=== PATIENT | male | born 1980 ===

== ENCOUNTER 2025-03-23 09:57 | Inpatient (IN) | payer OTHER, SELFPAY ==
[2025-03-23] VITALS (18 sets, daily range): BP systolic 80–143; BP diastolic 42–85; PULSE 67–154; RESP 11–22; TEMP 36.5–36.8; O2SAT 94–98; BMI 34.7; BMI 32.7
--- NOTE | 2025-03-23 | ECG_ITS ---
Test Reason : A-FIB Blood Pressure : */* mmHG Vent. Rate : 117 BPM Atrial Rate : 117 BPM P-R Int : 198 ms QRS Dur : 86 ms QT Int : 332 ms P-R-T Axes : 57 56 55 degrees QTcB Int : 463 ms Sinus tachycardia Early Repolarization Otherwise normal ECG When compared with ECG of 23-Mar-2025 10:20, Premature ventricular complexes are no longer Present Sinus rhythm is no longer with 2nd degree A-V block (Mobitz I) Referred By: Radha Parkinson Electronically Signed By: VELIA TOLLIVER MD
--- NOTE | ~2025-03-23 | XR_ITS ---
EXAMINATION: XR CHEST 1 VIEW HISTORY: palpitation COMPARISON: There are no prior studies available for comparison. FINDINGS: Two AP portable views of the chest performed at 1:11 PM are submitted. Artifacts overlie the left lung. No definite airspace opacity is seen. There is no pleural effusion, pneumothorax, or pulmonary vascular congestion. The heart is normal in size. The bones are intact. XR/XR chest 1V IMPRESSION: Limited examination due to artifacts. No gross abnormality is seen. Electronically signed by: Shiraz Simeon MD 03/23/2025 01:21 PM [facility]
--- NOTE | 2025-03-23 09:59 | ECG_ITS ---
Test Reason : CP Blood Pressure : */* mmHG Vent. Rate : 211 BPM Atrial Rate : * BPM P-R Int : * ms QRS Dur : 74 ms QT Int : 230 ms P-R-T Axes : * 102 174 degrees QTcB Int : 431 ms Supraventricular tachycardia Rightward axis Marked ST abnormality, possible inferior subendocardial injury Marked ST abnormality, possible anterolateral subendocardial injury Abnormal ECG No previous ECGs available Referred By: Generic ED Physician Electronically Signed By: VELIA TOLLIVER MD
[2025-03-23 10:13] LABS: MANUAL DIFF FLAG NO
[2025-03-23 10:20] LABS: Glucose, Whole Blood 214 mg/dL (60-115)
--- NOTE | 2025-03-23 10:20 | PC.NURSE ---
Patient arrived by EMS with c/o heart racing . EMS had attempted adenosine x3 and cardioversion x2 (50joules/100joules). VS upon time of arrival BP 80/[address] Luis at bedside with RN Niall and Emma. Adenosine 6mg given at 10:07 with brief period of HR <100; adenosine 12mg given at 10:08 and 10:18 with same brief period of HR <100. Dr. Luis ordered Cardizem 20mg IVP-given at 10:11. HR dropped into 110's. 3rd ECG done which showed ?Afib. aware. 1LNS infusing wide open. Second IV line inserted right arm. EMS line on left patent as well. BP prior to Cardizen 81/42. At 10:15, Cardizem drip hung at 6mg/hr with repeat BP 94/[address] Luis speaking with family at this time (Family is from [facility] and sleeve machine tender services being utilized). POC 214.
[2025-03-23 10:21] LABS: Hematocrit 48.0 % (42.0-52.0); Hemoglobin 16.4 g/dl (14.0-18.0); Imm Gran Abs Auto 0.01 X10*3/uL (0.00-0.03); Imm Gran Pct Auto 0.1 % (0.0-0.4); Lymphocytes Absolute Auto 2.5 X10*3/uL (1.2-4.9); Mean Corpuscular HGB Conc 34.2 g/dl (31.0-36.0); Mean Corpuscular Hemoglobin 30.0 pg (27.0-33.0); Mean Corpuscular Volume 87.9 fL (80.0-98.0); NRBC Abs Auto 0.000 X10*3/uL (0.0-0.012); NRBC Pct Auto 0.0 /100WBC (0.0-0.2); Platelet Count 236 X10*3/uL (160-400); Red Blood Count 5.46 X10*6/uL (4.60-5.80); White Blood Count 9.3 X10*3/uL (4.8-10.8)
[2025-03-23 10:27] LABS: Alanine Aminotransferase 59 U/L (0-40); Albumin Level 3.5 g/dL (3.5-5.0); Alkaline Phosphatase 64 U/L (39-117); Anion Gap 12 (12-20); Aspartate Amino Transferase 73 U/L (5-37); Blood Urea Nitrogen 13 mg/dL (9-16); Calcium 7.7 mg/dL (8.4-10.2); Carbon Dioxide 22 mmol/L (22-29); Chloride 111 mmol/L (96-108); Creatinine Clr Calc Pharmacy 121.7; Estimated Glomerular Filt Rate > 60; Magnesium 1.6 mg/dL (1.6-2.6); Potassium 3.9 mmol/L (3.3-5.1); Sodium 141 mmol/L (135-145); Total Protein 5.9 g/dL (6.5-8.0)
[2025-03-23 10:34] LABS: Troponin-I High Sensitivity 35.4 ng/L (<3.5-35.0)
--- NOTE | 2025-03-23 10:34 | ED_ITS ---
HPI - Arrhythmia/Palpitations General Chief Complaint: Arrhythmia/Palpitations Stated Complaint: chest pain, hr 186, Time Seen by Provider: 03/23/25 10:12 Source: patient, family, EMS and summer clerk (Moo) Mode of arrival: EMS Limitations: no limitations History of Present Illness ED Provider: DR. Castaneda HPI narrative: 44-year-old male with past medical history of SVT for the past 6 years, s/p ablation, patient was controlled on metoprolol for the last 5 years never had any episode then somehow the metoprolol was discontinued and patient had 1st episode after 5 years 2 days ago when he presented to [facility], came in by ambulance for evaluation of palpitation since this morning patient is feeling dizzy and palpitation called 911 patient had similar presentation 2 days ago went to [facility] and patient stated that he refused to be admitted to the hospital, patient's symptoms started around 09:00 this morning started with palpitation and feeling dizzy 911 was called on arrival patient with heart rate above 200 with hypotension patient did not respond to 6 mg / 12 mg/then 12 mg adenosine in the field patient require to be cardioverted by EMS was given 1 mg of Versed for sedation and patient was shocked at 120J followed by 200 usually patient temporary slow his heart rate down then rebound to the 200's. On arrival patient is sedated after was given Versed in route but able to answer simple question patient was in the 200 EKG showed narrow complex supraventricular tachycardia, given 6, 12, and 12 mg of adenosine was temporary slow down as normal sinus then patient rebound back to rapid SVT. Patient was given 6 mg of Cardizem with successful slow done of the heart rate to 110 with a sinus tachycardia, patient feels better now no palpitation, no chest pain no shortness of breath, blood pressure is 88/55 will continue with fluids consider pressor if needed. Related Data Allergies Allergy/AdvReac Type Severity Reaction Status Date / Time No Known Allergies Allergy Verified 03/23/25 10:19 Review of Systems 2 Review of Systems: All other systems are reviewed and are negative Constitutional: Reports as per HPI and Reports no additional constitutional complaints Eyes: Reports as per HPI and Reports no additional eye complaints Reports system reviewed and no additional complaints, except as documented Cardiovascular: Reports as per HPI and Reports no additional cardiovascular complaints Respiratory: Reports as per HPI and Reports no additional respiratory complaints Gastrointestinal: Reports as per HPI and Reports no additional gastrointestinal complaints Genitourinary: Reports no additional female genitourinary complaints Musculoskeletal: Reports no additional musculoskeletal complaints Skin/Breast: Reports system reviewed and no additional complaints, except as docu Psychiatric: Reports no additional psychiatric complaints Endocrine: Reports no additional endocrine complaints Hematologic/Lymphatic: Reports no additional hematologic/lymphatic complaints Allergic/Immunologic: Reports no additional allergic/immunologic complaints Reports system reviewed and no additional complaints, except as documented and Reports Abnormal speech present [facility] Social History Social History Smoked in Last 30 Days: No Use of substances other than those prescribed or required for medical reasons: No Advance Directives: No Advance Directives Information Provided: No Do you have a plan to hurt others: No Plan Physical Exam 2 Vital Signs: Vital Signs: Last Vital Signs Temp 97.7 F 03/23/25 10:27 Pulse 132 H 03/23/25 12:03 Resp 15 03/23/25 12:03 BP 107/57 L 03/23/25 12:03 Pulse Ox 96 03/23/25 12:03 O2 Del Method Nasal Cannula 03/23/25 12:03 O2 Flow Rate 1 03/23/25 12:03 Oxygen Flow Rate 4 03/23/25 10:17 BMI result Body Mass Index 34.7 Vital signs have been reviewed and appear to be correct. Blood pressure low, Heart rate elevated, Respiratory rate normal. Temperature normal. Oxygen saturation normal. Appearance: Alert. Oriented X3. No acute distress. Head: Normal external exam. Normocephalic. Atraumatic. No Fiore signs noted. No raccoon eyes noted Eyes: PERRLA. EOMI. Conjunctiva and sclera normal. Eyelids normal. ENT: TM's Normal. Pharynx normal. Uvula midline. Moist mucous membranes. No trismus noted. No drooling noted. No muffled voice noted. Neck: Normal inspection. Neck supple. FROM. No adenopathy. Thyroid Normal. No meningeal signs. No neck mass noted. CVS: Normal heart rate and rhythm. Heart sound normal. No murmurs noted. Pulses normal throughout. Respiratory: No respiratory distress. Painless inspiration. Breath sounds normal. No wheezes/rales/rhonchi noted. Chest nontender. No accessory muscle usage noted or decreased air movement noted. Abdomen: Soft and nontender. Bowel sounds normal in all 4 quadrants. No distention noted. No organomegaly noted. No visible injury noted. Back: No CVA tenderness. Full range of motion noted. Skin: Skin warm and dry. Normal skin color. Normal skin turgor. No rashes/lesions/lacerations noted. Extremities: No lower extremity edema. Extremities exhibit normal range of motion. Extremities nontender. Neuro: Oriented X 3. Cranial nerve exam: II-XII are grossly intact No motor deficit. No sensory deficit. Reflexes normal. Course Reevaluation(s) Reevaluation #1: Refractory narrow complex SVT to adenosine, and cardioversion by EMS on arrival patient require more adenosine and Cardizem drip has a better effect on heart rate now is 110s to 120s with more stable BP. Dr. Joy input is appreciated. Will admit for cardiac monitoring. Time: 12:45 Medications Administered Discontinued Medications Generic Name Dose Route Start Last Admin Trade Name Freq PRN Reason Stop Dose Admin Diazepam 2 mg 03/23/25 12:37 03/23/25 12:43 Diazepam 2 Mg Tablet PO 03/23/25 12:38 2 mg ONCE ONE Administration Digoxin 0.5 mg 03/23/25 11:15 03/23/25 11:38 Digoxin 0.5 Mg/2 Ml Ampul IVPUSH 03/23/25 11:16 0.5 mg ONCE ONE Administration Protocol Medical Decision Making Differential Diagnosis Differential Diagnoses: The differential diagnosis associated with the presentation includes ( SVT, rapid atrial fibrillation, wide complex tachycardia, electrolyte derangement, severe anemia, drug use.) Admission/Observation Consideration of admission/observation: Escalation of care including admission/observation considered Consult Healthcare Provider Management of the patient was discussed with: Hospitalist (Dr. Wise) and Marketing Traffic Coordinator ( Dr. Joy) Lab Data MDM Lab Attestation statement: I reviewed the patient's lab results. 03/23/25 10:05 03/23/25 10:05 Labs: Lab Results 03/23/25 03/23/25 03/23/25 Range/Units 10:05 10:08 10:15 WBC 9.3 (4.8-10.8) X10*3/uL RBC 5.46 (4.60-5.80) X10*6/uL Hgb 16.4 (14.0-18.0) g/dl Hct 48.0 (42.0-52.0) % MCV 87.9 (80.0-98.0) fL MCH 30.0 (27.0-33.0) pg MCHC 34.2 (31.0-36.0) g/dl RDW 12.2 (11.0-16.0) % Plt Count 236 (160-400) X10*3/uL MPV 11.6 (9.4-12.4) fL Immature Gran % (Auto) 0.1 (0.0-0.4) % Neut % (Auto) 59.7 (45-73) % Lymph % (Auto) 27.0 (20-40) % [place] % (Auto) 5.3 (2-11) % Eos % (Auto) 7.4 H (0-4) % Baso % (Auto) 0.5 (0-2) % Lymph # (Auto) 2.5 (1.2-4.9) X10*3/uL [place] # (Auto) 0.5 (0.1-1.2) X10*3/uL Eos # (Auto) 0.7 H (0.0-0.4) X10*3/uL Baso # (Auto) 0.1 (0.0-0.2) X10*3/uL Abs Immat Gran (auto) 0.01 (0.00-0.03) X10*3/uL Absolute Neuts (auto) 5.5 (2.0-8.3) x10*3/uL Absolute Nucleated RBC 0.000 (0.0-0.012) X10*3/uL Nucleated RBC % (auto) 0.0 (0.0-0.2) /100WBC Hold Purple Top SEE NOTE Hold Blue Top SEE NOTE Sodium 141 (135-145) mmol/L Potassium 3.9 (3.3-5.1) mmol/L Chloride 111 H (96-108) mmol/L Carbon Dioxide 22 (22-29) mmol/L Anion Gap 12 (12-20) BUN 13 (9-16) mg/dL Creatinine 0.96 (0.5-1.4) mg/dL Estim Creat Clear Calc 121.7 Estimated GFR > 60 POC Glucose 214 H (60-115) mg/dL Random Glucose 207 H (60-115) mg/dL Calcium 7.7 L (8.4-10.2) mg/dL Magnesium 1.6 (1.6-2.6) mg/dL Total Bilirubin 0.8 (0.0-1.0) mg/dL AST 73 H (5-37) U/L ALT 59 H (0-40) U/L Alkaline Phosphatase 64 (39-117) U/L Troponin I High Sens 35.4 H (<3.5-35.0) ng/L Total Protein 5.9 L (6.5-8.0) g/dL Albumin 3.5 (3.5-5.0) g/dL Independent Interpretation I performed an independent interpretation of an: EKG ( SVT at 210) Radiology Impression Discussion of test interpretation with radiology: I have reviewed the radiologist's reading. Critical Care Time Critical Care Time Critical Care Time: Yes Total Critical Care Time: 60 Attestation: The patient was critically ill with a high probability of imminent or life- threatening deterioration. I spent greater than 30 minutes of discontinuous time evaluating the patient, delivering critical care at the bedside, discussing evaluating data with consultants. Critical care time does not include time spent performing separately billable procedures or teaching. Time spent performing critical care was 60 minutes. Discharge Plan Discharge Clinical Impression: SVT (supraventricular tachycardia), Palpitations, Hypotension Patient Disposition: Admitted As Inpatient Print Language: Urdu
--- OUTSIDE RECORDS SUMMARY | 2025-03-23 10:45 | XMS_ITS | Clinical Summary ---
Author Organization [facility] Address [address] [place] [address] Care Team Providers Care [employer] Name Role Phone Sue Hooks [employer] Primary Care Provider Social History Tobacco Use Types Packs/Day Years Used Date Smoking Tobacco: Never Assessed Sex and Gender Information Value Date Recorded Sex Assigned at Not on file Legal Sex Male 7:42 AM EST Gender Identity Not on file Sexual Orientation Not on file Last Filed Vital Signs Vital Sign Reading Time Taken Comments Blood Pressure 130/75 06/26/2023 2:14 PM EDT Pulse 121 06/26/2023 2:14 PM EDT Temperature - - Respiratory Rate - - Oxygen Saturation - - Inhaled Oxygen Concentration - - Weight 106 kg (233 lb) 06/26/2023 2:14 PM EDT Height 170.2 cm (5' 7 ) 06/26/2023 2:14 PM EDT Body Mass Index 36.49 06/26/2023 2:14 PM EDT Plan of Treatment Health Maintenance Due Date Last Done Comments DTaP,Tdap,and Td Vaccines (1 - Tdap) 1999 Hepatitis B Vaccines (1 of 3 - 19+ 3-dose series) 1999 HPV Vaccines (1 - 3-dose SCD M series) 2007 Cholesterol Screening (Lipid Panel) 03/03/2022 HIV Screening 03/03/2022 Hepatitis C Screening 03/03/2022 Social Influencers of Health Screening 03/03/2022 Depression Screening 2024 COVID-19 Vaccine ( - 2024-2 6 season) 2024 Influenza Vaccine (#1) 2024 RSV Immunization Adult Patie nts (1 - 1-dose 75+ series) 2055 HIB Vaccines Aged Out No longer eligi ble based on patient's age to complete this topic Hepatitis A Vaccines Aged Out No long er eligible based on patient's age to complete this topic IPV Vaccines Aged Out No longer eligi ble based on patient's age to complete this topic MMR Vaccines Aged Out No longer eligi ble based on patient's age to complete this topic Meningococcal ACWY Vaccine Aged Out N o longer eligible based on patient's age to complete this topic Meningococcal B Vaccine Aged Out No l onger eligible based on patient's age to complete this topic Pneumococcal Vaccine: Pediat rics (0 to 5 Years) and At-Risk Patients (6 to 49 Years) Aged Out No longer eligible b ased on patient's age to complete this topic RSV Immunization Patients Un sophia 20 months Aged Out No longer eligible b ased on patient's age to complete this topic Varicella Vaccines Aged Out No longer eligible based on patient's age to complete this topic Care Teams [employer] Relationship Specialty Start Date End Date Sue Hooks FNP [address] [place] [phone] PCP - General 05/27/23
--- NOTE | 2025-03-23 11:00 | PC.NURSE ---
Completed 1L IVF Patient BP 100/54 HR 122-145 Increased Cardizem drip from 10 mg -> 15 mg/hr Patient on 4 L NC, titrated to RA 90% patient expressed feeling SOB Titrated O2 to 1L NC patient O2 100 RR 13 remains at bedside
--- NOTE | 2025-03-23 12:06 | P.CONCA_ITS ---
History of Present Illness History of Present Illness Date of Service: 03/23/25 Requesting physician: Frida Castaneda Consult reason: other (Supraventricular tachycardia with hypotension) Chief complaint: chest pain, hr 186, Narrative: I was consulted to see [place] in cardiology consultation today for recalcitrant SVT. Patient is a 44-year-old man from [facility] who now lives in [facility] for the last 20 years. And has had diabetes for many years and about in 2019 was diagnosed with past artery and and consistent with SVT. He then describes the procedure which appears to be catheter ablation but as per him was unsuccessful and the confined the pathway and were not able to ablate him. Subsequently was treated with medications and he thinks this was metoprolol. He said he did well for many years and about a year ago his metoprolol was stopped for unclear reasons. Does not understands to why. There has been change in his primary care physician physicians overall. He then started about 2 weeks ago having symptoms of fast heart rate associated with dizziness and then shortness of breath and chest heaviness. He said these symptoms started spontaneously and even happen with minimal exertional like he is trying to do something at work. 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 He subsequently went to [facility] about 2 days ago. Was advise admission but then signed out. He then today had severe symptoms and called EMS and on the field received round of adenosine x3 without conversion became hypotensive and required cardioversion in the field. Patient was sedated and then he was brought to the emergency room. In the emergency room continued to have these episodes. He was then given Cardizem and has been put on Cardizem drip. With that there has been some controlled but he continues to have recurrent episodes of short bursts of SVT. EKGs consistent with AVNRT. His blood pressure is on the softer side. However at rest he is feeling okay. Denies any significant shortness of breath or chest pain. His initial troponin was slightly elevated. Cardiology consult was sought because of his recurrent SVT. He has never had any other cardiac issues as per him. [facility] Social History Social History Smoked in Last 30 Days: No Use of substances other than those prescribed or required for medical reasons: No Advance Directives: No Advance Directives Information Provided: No Do you have a plan to hurt others: No Plan Meds Allergies Allergy/AdvReac Type Severity Reaction Status Date / Time No Known Allergies Allergy Verified 03/23/25 10:19 Physical Exam 2 Vital Signs: Vital Signs: Last Vital Signs Temp 97.7 F 03/23/25 10:27 Pulse 132 H 03/23/25 12:03 Resp 15 03/23/25 12:03 BP 107/57 L 03/23/25 12:03 Pulse Ox 96 03/23/25 12:03 O2 Del Method Nasal Cannula 03/23/25 12:03 O2 Flow Rate 1 03/23/25 12:03 Oxygen Flow Rate 4 03/23/25 10:17 BMI result Body Mass Index 34.7 Const: General: cooperative, comfortable, no acute distress, alert, awake and anxious Nutritional Appearance: obese Orientation/consciousness: patient oriented x3 Limitations: no limitations HEENT: Head: Yes normocephalic and Yes atraumatic Neck: Neck: Yes trachea midline, Yes supple and Yes no JVD Resp: Effort & Inspection: normal respiratory effort Auscultation: clear to auscultation bilaterally Cardio: Jugular venous distension: no JVD Rate: tachycardic Rhythm: a bnormal rhythm other (Intermittent tachycardia) Heart sounds: S1 normal heart sound present, S2 normal heart sound present, no click, no gallops and no murmurs GI: Auscultation: normal bowel sounds Skin: General skin exam: no rashes or lesions noted Neuro: General: patient oriented x3 and no focal motor deficits Extrem: General: Yes no clubbing, cyanosis or edema Objective Labs and Meds 03/23/25 10:05 03/23/25 10:05 Lab results: Laboratory Results - last 24 hr 03/23/25 03/23/25 03/23/25 10:05 10:08 10:15 WBC 9.3 RBC 5.46 Hgb 16.4 Hct 48.0 MCV 87.9 MCH 30.0 MCHC 34.2 RDW 12.2 Plt Count 236 MPV 11.6 Immature Gran % (Auto) 0.1 Neut % (Auto) 59.7 Lymph % (Auto) 27.0 [place] % (Auto) 5.3 Eos % (Auto) 7.4 H Baso % (Auto) 0.5 Lymph # (Auto) 2.5 [place] # (Auto) 0.5 Eos # (Auto) 0.7 H Baso # (Auto) 0.1 Abs Immat Gran (auto) 0.01 Absolute Neuts (auto) 5.5 Absolute Nucleated RBC 0.000 Nucleated RBC % (auto) 0.0 Hold Purple Top SEE NOTE Hold Blue Top SEE NOTE Sodium 141 Potassium 3.9 Chloride 111 H Carbon Dioxide 22 Anion Gap 12 BUN 13 Creatinine 0.96 Estim Creat Clear Calc 121.7 Estimated GFR > 60 POC Glucose 214 H Random Glucose 207 H Calcium 7.7 L Magnesium 1.6 Total Bilirubin 0.8 AST 73 H ALT 59 H Alkaline Phosphatase 64 Troponin I High Sens 35.4 H Total Protein 5.9 L Albumin 3.5 EKGs shows narrow complex tachycardia at 200-210 beats per minute consistent with SVT of AVNRT type. Subsequent EKGs shows normal sinus rhythm without any evidence of pre-excitation Assessment and Plan (1) SVT (supraventricular tachycardia): Status: Acute Recalcitrant SVT which has been difficult control with the associated hypotension. Patient required synchronized cardioversion [employer] due to significant symptoms and low blood pressure. Since then has had partial response to full-dose IV Cardizem drip at this time. His blood pressure remained soft. Will give him digoxin 0.5 mg to also block is fast pathway to try to break his SVT. If this is difficult control, will then consider IV amiodarone to slow AV conduction as well as hopefully prevent any other cardiac arrhythmias. Would give him IV fluid as that has no evidence of congestive heart failure. If need be and blood pressure remains low may require IV vasopressor therapy. Discussed the case with electrophysiology database administration associate as well. Discussed the case with ED physician. Greater than 40 minutes was spent in managing and coordinating his care. Thank you for allowing me to partake in his care Procedures Date of Service Date of Service: 03/23/25
[2025-03-23 13:14] LABS: Cannabinoid Screen Urine Not Detected (Not Detect)
[2025-03-23 13:20] LABS: Appearance Urine Clear; Glucose Urine UA 500 mg/dL (Negative); PH 6.5 (5.0-9.0); Specific Gravity - Urine 1.010 (1.005-1.025)
--- NOTE | 2025-03-23 13:40 | PM.IMHP ---
History of Present Illness Date of Service: 03/23/25 Chief Complaint: palpitations 44-year-old gentleman with past medical history of diabetes mellitus type 2 on insulin, history of SVT status post ablation 6 years ago, was subsequently on metoprolol for 5 years and never had any episode. Recently his metoprolol was discontinued by his new PCP. Two days ago he developed palpitations and went to [facility] was advice admission but patient refused admission. This morning patient developed palpitations associated with dizziness therefore called 911. EMS found patient heart rate in 200s with hypotension therefore treated with adenosine 6 mg followed by 12 mg and another 12 mg dose with no significant response therefore required cardioversion received 120 joule shock followed by 200 by EMS. Patient heart rate temporarily slowed but then rebound to 200s. In emergency room EKG showed narrow complex supraventricular tachycardia patient was treated with Cardizem heart rate slowed down but was noted to have low blood pressure 88/55. Patient currently is on Cardizem drip heart rate is controlled but noted to have recurrent episode of short burst of SVT. Patient seen by [employer] retailer sales consultant Dr. Reina, EKGs consistent with AVNRT, he recommended 1 dose of digoxin 0.5 mg and IV fluids patient is now being admitted to [facility] for continued monitoring and treatment of SVT at present patient denies chest pain but continued to be lightheaded and dizzy. Patient admits to drinking 1 quater of whiskey over weekend and smokes half pack per day. Review of Systems Review of Systems: General no headache, dizziness no fever chills. CVS no chest pain, no palpitation. Respiratory no cough, no sob Gastrointestinal no nausea, no vomiting, no abdominal pain All other system reviewed and are negative PMFSH Pertinent family history: Parents are alive patient not aware of their health history. Social History Household Members: Spouse Housing: Apartment Do you presently have visiting nurse or other home services: No Patient Tobacco Use Status: Current everyday Tobacco user Tobacco use type: Cigarette Cigarette Packs Per Day: 0.5 Cigarettes Per Day: 10.0 Years Smoked: 8 Smoked in Last 30 Days: Yes Patient Interested in Nicotine Replacement: Yes Use of substances other than those prescribed or required for medical reasons: No Currently Displaying Signs/Symptoms of Drug Intoxication Withdrawal: No Have you been hit, kicked, punched, or otherwise hurt by someone within the past year? If so, by whom?: No Do you feel safe in your current relationship?: Yes Is there a partner from a previous relationship who is making you feel unsafe now?: No Are you made to feel afraid or neglected: No Advance Directives: No Advance Directives Information Provided: No Do you have a plan to hurt others: No Plan Recently lost weight without trying: No Eating poorly because of decreased appetite: No Nutrition Risks: No Nutritional Risk Poor oral hygiene: No service: No Meds Allergies Allergy/AdvReac Type Severity Reaction Status Date / Time No Known Allergies Allergy Verified 03/23/25 10:19 Active Medications: Current Medications Acetaminophen (Acetaminophen 325 Mg Tablet) 650 mg PO Q6H PRN PRN Reason: Pain, Mild 1-3,fever,headache Al Hydroxide/Mg Hydroxide (Magnesium Hydrox/Alum Hydrox 30 Ml Oral.Susp) 30 ml PO Q4H PRN PRN Reason: Heartburn Calcium Carbonate (Calcium Carbonate 750 Mg Tab.Chew) 750 mg PO Q4H PRN PRN Reason: Heartburn Glucose (Glucose Gel 15 Gm Gel..Gram.) 15 gm PO Q15M PRN; Protocol PRN Reason: per Hypoglycemia Standing Ord. Lactated Ringer's (Lr) 1,000 mls @ 100 mls/hr IVCONT .Q10H [facility] Stop: 03/23/25 23:44 Diltiazem HCl 125 mg/ Sodium (Chloride) 125 mls @ 0 mls/hr IVCONT .Q0M [facility]; Protocol Magnesium Hydroxide (Milk Of Magnesia 30 Ml Oral.Susp) 30 ml PO DAILY PRN PRN Reason: Constipation Melatonin (Melatonin 3 Mg Tablet) 6 mg PO BEDTIME PRN PRN Reason: Insomnia Nicotine Polacrilex (Nicotine Polacrilex 2 Mg Gum) 2 mg BUCCAL Q2H PRN PRN Reason: Nicotine Cravings Ondansetron HCl (Ondansetron Hcl 4 Mg/2 Ml Vial) 4 mg IVPUSH Q8H PRN PRN Reason: Nausea and Vomiting Polyethylene Glycol (Polyethylene Glycol 3350 17 Gm Powd.Pack) 17 gm PO DAILY PRN PRN Reason: Constipation Sodium Chloride (0.9 % Sodium Chloride Flush 3 Ml Syringe) 3 ml IVFLUSH [facility] Home Medications ?Medication ?Instructions ?Recorded ?Confirmed ?Last Taken ?Type acetaminophen 650 mg 1,300 mg PO Q8H PRN Headache/Pain 03/23/25 03/23/25 03/23/25 History tablet,extended release atorvastatin 20 mg tablet 20 mg PO DAILY 03/23/25 03/23/25 3 Days Ago History ~03/20/25 insulin glargine 100 unit/mL (3 45 unit subcut DAILY 03/23/25 03/23/25 03/22/25 History mL) subcutaneous pen (Lantus Solostar U-100 Insulin) metformin 1,000 mg tablet 1,000 mg PO BID 03/23/25 03/23/25 03/22/25 History Physical Exam Vital Signs and Narrative: Vital Signs: Last Vital Signs Temp 97.7 F 03/23/25 10:27 Pulse 126 H 03/23/25 12:56 Resp 15 03/23/25 12:56 BP 129/85 03/23/25 12:56 Pulse Ox 96 03/23/25 12:56 O2 Del Method Nasal Cannula 03/23/25 12:56 O2 Flow Rate 1 03/23/25 12:56 Oxygen Flow Rate 4 03/23/25 10:17 BMI result Body Mass Index 34.7 Const: Other: General resting comfortably in no acute distress. Neck supple no JVD. CVS regular rate rhythm, tachy Respiratory lungs clear to auscultation, no respiratory distress, no wheeze, no rhonchi. Gastrointestinal abdomen soft, non tender, bowel sounds audible, no guarding , no rigidity. Extremities no edema. Neuro non focal Skin no rash Psych appropriate affect Results Labs 03/25/25 06:17 03/25/25 06:17 Labs: Laboratory Results - last 24 hr 03/23/25 03/23/25 03/23/25 10:05 10:08 10:15 MCV 87.9 MCH 30.0 MCHC 34.2 RDW 12.2 Plt Count 236 MPV 11.6 Immature Gran % (Auto) 0.1 Neut % (Auto) 59.7 Lymph % (Auto) 27.0 [place] % (Auto) 5.3 Eos % (Auto) 7.4 H Baso % (Auto) 0.5 Lymph # (Auto) 2.5 [place] # (Auto) 0.5 Eos # (Auto) 0.7 H Baso # (Auto) 0.1 Abs Immat Gran (auto) 0.01 Absolute Neuts (auto) 5.5 Absolute Nucleated RBC 0.000 Nucleated RBC % (auto) 0.0 Hold Purple Top SEE NOTE Hold Blue Top SEE NOTE Anion Gap 12 Estim Creat Clear Calc 121.7 Estimated GFR > 60 POC Glucose 214 H Random Glucose 207 H Calcium 7.7 L Magnesium 1.6 Total Bilirubin 0.8 AST 73 H ALT 59 H Alkaline Phosphatase 64 Troponin I High Sens 35.4 H Total Protein 5.9 L Albumin 3.5 Urine Color Urine Appearance Urine pH Ur Specific [place] Urine Protein Urine Glucose (UA) Urine Ketones Urine Blood Urine Nitrite Ur Leukocyte Esterase Urine Opiates Screen Ur Buprenorphine Scrn Ur Oxycodone Screen Urine Methadone Screen Urine Fentanyl Screen Ur Barbiturates Screen Ur Phencyclidine Scrn Ur Amphetamines Screen U Benzodiazepines Scrn Urine Cocaine Screen U Marijuana (THC) Screen 03/23/25 12:55 MCV MCH MCHC RDW Plt Count MPV Immature Gran % (Auto) Neut % (Auto) Lymph % (Auto) [place] % (Auto) Eos % (Auto) Baso % (Auto) Lymph # (Auto) [place] # (Auto) Eos # (Auto) Baso # (Auto) Abs Immat Gran (auto) Absolute Neuts (auto) Absolute Nucleated RBC Nucleated RBC % (auto) Hold Purple Top Hold Blue Top Anion Gap Estim Creat Clear Calc Estimated GFR POC Glucose Random Glucose Calcium Magnesium Total Bilirubin AST ALT Alkaline Phosphatase Troponin I High Sens Total Protein Albumin Urine Color Yellow Urine Appearance Clear Urine pH 6.5 Ur Specific [place] 1.010 Urine Protein Trace Urine Glucose (UA) 500 H Urine Ketones 15 Urine Blood Negative Urine Nitrite Negative Ur Leukocyte Esterase Negative Urine Opiates Screen Not Detected Ur Buprenorphine Scrn Not Detected Ur Oxycodone Screen Not Detected Urine Methadone Screen Not Detected Urine Fentanyl Screen Not Detected Ur Barbiturates Screen Not Detected Ur Phencyclidine Scrn Not Detected Ur Amphetamines Screen Not Detected U Benzodiazepines Scrn POSITIVE H Urine Cocaine Screen Not Detected U Marijuana (THC) Screen Not Detected Imaging Radiologist's Impressions: Impressions Chest X-Ray 03/23/25 13:11 IMPRESSION: Limited examination due to artifacts. No gross abnormality is seen. Electronically signed by: Shiraz Simeon MD 03/23/2025 01:21 PM [facility] Assessment and Plan (1) Palpitations: Status: Acute (2) Hypotension: Status: Acute (3) SVT (supraventricular tachycardia): Status: Acute Plan 44-year-old gentleman with past medical history of SVT status post ablation 6 years ago was doing fine up until recently when his metoprolol was discontinued patient developed episodes of intermittent palpitations and lightheadedness. Recalcitrant SVT associated with hypotension Patient heart rate continued to fluctuate between 100-135 with persistent lightheadedness Patient treated with 3 dosages of IV adenosine followed by cardioversion with temporary improvement in heart rate, treated in emergency room with IV Cardizem. Continue IV Cardizem drip, status post digoxin 0.5 mg IV, continue tele monitor Repeat EKG, trend troponin Echocardiogram Cardiology consultation Diabetes mellitus type [address] on diabetic diet/insulin sliding scale hold metformin, point of care blood sugar monitoring. Tobacco use disorder counseling done place on nicotine gum Alcohol use disorder drink heavily over weekend strongly recommend to abstain from alcohol, no history of prior withdrawal, follow CIWA. DVT prophylaxis subQ Lovenox Full code In my clinical judgment patient require 2 night inpatient stay for monitoring of recalcitrant SVT on IV Cardizem drip specialist consultation and further medication adjustment treatment can not be provided in less acute setting. Quality Stroke Does the patient have a stroke diagnosis?: No VTE Prior VTE?: No VTE Risk Level:: Medical - moderate - high VTE Device Contraindication: Treatment Not Indicated VTE Drug Contraindication: N/A - Med Ordered
--- NOTE | 2025-03-23 13:45 | CA_ITS ---
Transthoracic Echocardiogram Patient (Last, First, Middle): Austin Tovar, Gender: M Date of : 1980 Age: 44 Procedure Date: 03/23/2025 Procedure Type: Transthoracic Echocardiogram Location: ER Height: 177.8 cm Weight: 58.51 kg BSA: 1.73 m2 Heart Rate: 78 bpm BP: 125 / 76 mmHg Science Teacher: JOSIAS Referring MD: Radha Parkinson MD Recyclable Materials Sorter: Cristopher Joy MD Symptoms: svt Study Quality: Fair but adequate ECG Rhythm: Sinus with frequent PACs Conclusions: - 1. Low normal LV ejection fraction 50-55% with mildly increased LV wall thickness 2. Normal cardiac valvular Dopplers 3. Upper limits of normal ascending aortic size 4. No gross pericardial effusion Findings Left Ventricle Normal left ventricular cavity size. There is mildly increased left ventricular wall thickness. The left ventricular systolic function is low normal. The visually estimated ejection fraction is between 50-55%. Diastolic function is indeterminate on the basis of available data. Right Ventricle Normal right ventricular cavity size. There is normal right ventricular systolic function. Atria The left atrium is likely dilated. Interatrial shunt cannot be excluded. The right atrium is normal in size. Aortic Valve Normal aortic valve structure and function. There is no aortic valve stenosis. There is no aortic valve regurgitation. Mitral Valve Normal mitral valve structure and function. There is trace mitral valve regurgitation. There is no mitral valve stenosis. Pulmonic Valve The pulmonic valve is likely normal. Tricuspid Valve Normal tricuspid valve structure. Tricuspid regurgitation envelope is inadequate for calculation of right ventricular systolic pressure. Normal right atrial pressure. Great Vessels All visible segments of the aorta are normal in size. The pulmonary artery was not well visualized. There is no dilatation of the ascending aorta measuring 3.50 cm. Venous The inferior vena cava is normal in size and collapses greater than 50% with inspiration. Pericardium/Pleural There is no evidence of pericardial effusion. Prior Study Comparison No prior study available for comparison. Measurements 2D Linear Measurements IVSd: 1.18 0.6-0.9/0.6-1.0 cm LVIDd: 4.80 3.9-5.3/4.2-5.9 cm LVIDd Index: 2.77 2.4-3.2/2.2-3.1 cm/m2 LVIDs: 3.19 2.0-3.6 cm LVPWd: 1.21 0.7-1.1 cm LA Diam: 4.10 2.7-3.8/3.0-4.0 cm LAIDs Index: 2.37 1.5-2.3 cm/m2 LV Mass: 330.79 67-162/88-224 g LV Mass Index: 191.21 43-95/49-115 g/m2 LVOT Diam: 2.20 3.0+(-)1.3 cm Mitral Valve MV Pk E: 0.71 MV PK A: 0.84 MV Decel Time: 151.00 E/A: 0.80 E'Medial: 8.81 E/E' Med: 8.00 PHT: 44.00 MVA PHT: 5.00 Decel [place]: 4.69 Aortic Valve AoV Pk Jose Alejandro: 0.90 AoV Pk Grad: 3.00 [place]: 3.44 LVOT LVOT Pk Jose Alejandro: 0.82 LVOT Mn Jose Alejandro: 0.59 LVOT VTI: 0.15 LVOT Pk Grad: 3.00 LVOT Mn Grad: 2.00 LVOT Diam: 2.20 LVOT Area: 3.80 Diastolic Function MV Pk E: 0.71 MV Pk A: 0.84 E/A: 0.80 E'Medial: 8.81 E/E' Med: 8.00 Right Ventricle TAPSE (mm): 18.50 TVS' Jose Alejandro: 10.40 Tricuspid Valve RA Press: 8.00 Great Vessels Aorta Sinus of Valsalva: 3.30 2.0-3.5 cm Ao Asc: 3.50 2.1-3.4 cm Ao Arch: 3.00 Pulmonary Valve PV Pk Jose Alejandro: 0.75 Peak PV Grad: 2.00 Updated in Other Vendor System with Status of Final Cristopher Joy MD electronically signed on 03/23/2025 3:28:24 PM with status of Final
[2025-03-23 14:34] LABS: Magnesium 1.7 mg/dL (1.6-2.6)
[2025-03-23 14:41] LABS: Troponin-I High Sensitivity 65.2 ng/L (<3.5-35.0)
--- NOTE | 2025-03-23 15:14 | PHA.MEDREC ---
Addendum entered by Du Kuhn PharmD 03/23/25 15:17: reviewed Original Note: Pharmacy Consult ? Medication Reconciliation Pharmacy has completed the medication reconciliation. Spoke with pt and he confirmed his medications. Pt states he ran out of his Atorvastatin 20mg tabs ~3-4 days ago he states.
[2025-03-23] MEDS: Lactated Ringers 1,000 ML 100 ML IVCONT (16:06)
--- NOTE | 2025-03-23 17:03 | PC.NURSE ---
Patient HR 71 Titrated cardizem drip 10mg/hr BP 136/70
[2025-03-23 17:48] LABS: Glucose, Whole Blood 254 mg/dL (60-115)
[2025-03-23 21:48] LABS: Glucose, Whole Blood 189 mg/dL (60-115)
[2025-03-24] VITALS (15 sets, daily range): BP systolic 112–156; BP diastolic 50–98; PULSE 79–130; RESP 14–18; TEMP 36.1–36.8; O2SAT 92–94
--- NOTE | 2025-03-24 | ECG_ITS ---
Test Reason : adnormal ryhthm Blood Pressure : */* mmHG Vent. Rate : 112 BPM Atrial Rate : 130 BPM P-R Int : * ms QRS Dur : 88 ms QT Int : 326 ms P-R-T Axes : 66 70 52 degrees QTcB Int : 444 ms Normal sinus rhythm with short bursts of atrial tachycardia Abnormal ECG Normal sinus rhythm is noted intermittently Referred By: Lisa Cardoso Electronically Signed By: VELIA TOLLIVER MD
[2025-03-24 06:56] LABS: Cholesterol 121 mg/dL (<200); HDL Cholesterol 31 mg/dL (>40); Triglycerides 124 mg/dL (<150)
--- NOTE | 2025-03-24 08:06 | MHC.CM.PN ---
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 Home/self care is Patient's goal and CM has initiated and will follow for dc planning.PCP is from the [facility] in [place] and Patient's Friend will transport at dc.
--- NOTE | 2025-03-24 08:07 | PM.IMPN ---
Progress Note: A&P (1) SVT (supraventricular tachycardia): Status: Acute Assessment and Plan: 44-year-old gentleman with past medical history of SVT status post ablation 6 years ago was doing fine up until recently when his metoprolol was discontinued patient developed episodes of intermittent palpitations and lightheadedness. Recalcitrant SVT associated with hypotension Likely in the setting of not having a cardiology follow-up and medication compliance from poor access Reinforced the need for scheduled follow-up and medication adjustment-patient would like to be referred to someone at our facility in outpatient settings. Patient treated with 3 dosages of IV adenosine followed by cardioversion with temporary improvement in heart rate, treated in emergency room with IV Cardizem.IV,status post digoxin 0.5 mg IV, Given suboptimal control, we will start him on metoprolol tartrate 25 p.o. q.6 scheduled, digoxin 0.25 daily for rate and rhythm control and wean him off of Cardizem drip slowly Continue tele monitor Troponin peaked Echocardiogram no ventricular or valvular deficits noted Cardiology following Check TSH, LFTs Diabetes mellitus type [address] on diabetic diet/insulin sliding scale hold metformin, point of care blood sugar monitoring. Checking A1c Tobacco use disorder counseling done place on nicotine gum Alcohol use disorder drink heavily over weekend strongly recommend to abstain from alcohol, no history of prior withdrawal, follow CIWA. DVT prophylaxis subQ Lovenox Full code In my clinical judgment patient require 1 more night inpatient stay for monitoring of recalcitrant SVT on IV Cardizem drip specialist consultation and further medication adjustment treatment can not be provided in less acute setting. Subjective Subjective Date of Service: 03/24/25 Interval History: Meds being adjusted adding metoprolol and digoxin p.o. We will try to wean him of Cardizem drip Review of Systems Review of Systems: Yes all other systems are reviewed and are negative Physical Exam Exam: Exam: General resting comfortably in no acute distress. CVS regular rate rhythm, tachy Respiratory lungs clear to auscultation, no respiratory distress, no wheeze, no rhonchi. Gastrointestinal abdomen soft, non tender, bowel sounds audible, no guarding , no rigidity. Psych appropriate affect Vital Signs: Vital Signs: Last Vital Signs Temp 97.0 F 03/24/25 03:03 Pulse 87 03/24/25 07:01 Resp 14 03/24/25 03:03 BP 130/61 03/24/25 07:01 Pulse Ox 94 03/24/25 03:03 O2 Del Method Room Air 03/24/25 03:03 O2 Flow Rate 1 03/23/25 12:56 Oxygen Flow Rate 4 03/23/25 10:17 BMI result Body Mass Index 32.7 Objective Data Current Medications Acetaminophen (Acetaminophen 325 Mg Tablet) 650 mg PO Q6H PRN PRN Reason: Pain, Mild 1-3,fever,headache Last Admin: 03/23/25 17:44 Dose: 650 mg Al Hydroxide/Mg Hydroxide (Magnesium Hydrox/Alum Hydrox 30 Ml Oral.Susp) 30 ml PO Q4H PRN PRN Reason: Heartburn Atorvastatin Calcium (Atorvastatin Calcium 20 Mg Tablet) 20 mg PO DAILY [facility] Calcium Carbonate (Calcium Carbonate 750 Mg Tab.Chew) 750 mg PO Q4H PRN PRN Reason: Heartburn Dextrose (Dextrose 50 % 25 Gm/50 Ml Syringe) 25 gm IVPUSH Q15M PRN; Protocol PRN Reason: per Hypoglycemia Standing Ord. Glucose (Glucose Gel 15 Gm Gel..Gram.) 15 gm PO Q15M PRN; Protocol PRN Reason: per Hypoglycemia Standing Ord. Diltiazem HCl 125 mg/ Sodium (Chloride) 125 mls @ 0 mls/hr IVCONT .Q0M [facility]; Protocol Last Titration: 03/24/25 07:01 Dose: 10 mg/hr, 10 mls/hr Insulin Glargine (Insulin Glargine,Hum.Rec.Anlog 100 Unit/Ml 10 Ml Vial) 35 unit SUBCUT DAILY [facility] Insulin Human Lispro (Insulin Lispro 100 Unit/Ml 3 Ml Vial) 0 unit SUBCUT QIDACHS [facility]; Protocol Last Admin: 03/23/25 21:52 Dose: 2 unit Magnesium Hydroxide (Milk Of Magnesia 30 Ml Oral.Susp) 30 ml PO DAILY PRN PRN Reason: Constipation Melatonin (Melatonin 3 Mg Tablet) 6 mg PO BEDTIME PRN PRN Reason: Insomnia Nicotine Polacrilex (Nicotine Polacrilex 2 Mg Gum) 2 mg BUCCAL Q2H PRN PRN Reason: Nicotine Cravings Ondansetron HCl (Ondansetron Hcl 4 Mg/2 Ml Vial) 4 mg IVPUSH Q8H PRN PRN Reason: Nausea and Vomiting Polyethylene Glycol (Polyethylene Glycol 3350 17 Gm Powd.Pack) 17 gm PO DAILY PRN PRN Reason: Constipation Sodium Chloride (0.9 % Sodium Chloride Flush 3 Ml Syringe) 3 ml IVFLUSH QSHIFT [facility] Last Admin: 03/24/25 02:39 Dose: Not Given Labs 03/24/25 08:36 03/24/25 08:36 Labs: Laboratory Results - last 24 hr 03/23/25 03/23/25 03/23/25 10:05 10:08 10:15 MCV 87.9 MCH 30.0 MCHC 34.2 RDW 12.2 Plt Count 236 MPV 11.6 Immature Gran % (Auto) 0.1 Neut % (Auto) 59.7 Lymph % (Auto) 27.0 [place] % (Auto) 5.3 Eos % (Auto) 7.4 H Baso % (Auto) 0.5 Lymph # (Auto) 2.5 [place] # (Auto) 0.5 Eos # (Auto) 0.7 H Baso # (Auto) 0.1 Abs Immat Gran (auto) 0.01 Absolute Neuts (auto) 5.5 Absolute Nucleated RBC 0.000 Nucleated RBC % (auto) 0.0 Hold Purple Top SEE NOTE Hold Blue Top SEE NOTE Anion Gap 12 Estim Creat Clear Calc 121.7 Estimated GFR > 60 POC Glucose 214 H Random Glucose 207 H Calcium 7.7 L Magnesium 1.6 Total Bilirubin 0.8 AST 73 H ALT 59 H Alkaline Phosphatase 64 Troponin I High Sens 35.4 H Total Protein 5.9 L Albumin 3.5 Triglycerides Cholesterol LDL Cholesterol, Calc HDL Cholesterol Urine Color Urine Appearance Urine pH Ur Specific [place] Urine Protein Urine Glucose (UA) Urine Ketones Urine Blood Urine Nitrite Ur Leukocyte Esterase Urine Opiates Screen Ur Buprenorphine Scrn Ur Oxycodone Screen Urine Methadone Screen Urine Fentanyl Screen Ur Barbiturates Screen Ur Phencyclidine Scrn Ur Amphetamines Screen U Benzodiazepines Scrn Urine Cocaine Screen U Marijuana (THC) Screen 03/23/25 03/23/25 03/23/25 12:55 14:12 17:43 MCV MCH MCHC RDW Plt Count MPV Immature Gran % (Auto) Neut % (Auto) Lymph % (Auto) [place] % (Auto) Eos % (Auto) Baso % (Auto) Lymph # (Auto) [place] # (Auto) Eos # (Auto) Baso # (Auto) Abs Immat Gran (auto) Absolute Neuts (auto) Absolute Nucleated RBC Nucleated RBC % (auto) Hold Purple Top Hold Blue Top Anion Gap Estim Creat Clear Calc Estimated GFR POC Glucose 254 H Random Glucose Calcium Magnesium 1.7 Total Bilirubin AST ALT Alkaline Phosphatase Troponin I High Sens 65.2 H D Total Protein Albumin Triglycerides Cholesterol LDL Cholesterol, Calc HDL Cholesterol Urine Color Yellow Urine Appearance Clear Urine pH 6.5 Ur Specific [place] 1.010 Urine Protein Trace Urine Glucose (UA) 500 H Urine Ketones 15 Urine Blood Negative Urine Nitrite Negative Ur Leukocyte Esterase Negative Urine Opiates Screen Not Detected Ur Buprenorphine Scrn Not Detected Ur Oxycodone Screen Not Detected Urine Methadone Screen Not Detected Urine Fentanyl Screen Not Detected Ur Barbiturates Screen Not Detected Ur Phencyclidine Scrn Not Detected Ur Amphetamines Screen Not Detected U Benzodiazepines Scrn POSITIVE H Urine Cocaine Screen Not Detected U Marijuana (THC) Screen Not Detected 03/23/25 03/24/25 21:44 06:12 MCV MCH MCHC RDW Plt Count MPV Immature Gran % (Auto) Neut % (Auto) Lymph % (Auto) [place] % (Auto) Eos % (Auto) Baso % (Auto) Lymph # (Auto) [place] # (Auto) Eos # (Auto) Baso # (Auto) Abs Immat Gran (auto) Absolute Neuts (auto) Absolute Nucleated RBC Nucleated RBC % (auto) Hold Purple Top Hold Blue Top Anion Gap Estim Creat Clear Calc Estimated GFR POC Glucose 189 H Random Glucose Calcium Magnesium Total Bilirubin AST ALT Alkaline Phosphatase Troponin I High Sens Total Protein Albumin Triglycerides 124 Cholesterol 121 LDL Cholesterol, Calc 66 HDL Cholesterol 31 L Urine Color Urine Appearance Urine pH Ur Specific [place] Urine Protein Urine Glucose (UA) Urine Ketones Urine Blood Urine Nitrite Ur Leukocyte Esterase Urine Opiates Screen Ur Buprenorphine Scrn Ur Oxycodone Screen Urine Methadone Screen Urine Fentanyl Screen Ur Barbiturates Screen Ur Phencyclidine Scrn Ur Amphetamines Screen U Benzodiazepines Scrn Urine Cocaine Screen U Marijuana (THC) Screen Quality Stroke Does the patient have a stroke diagnosis?: No VTE Prior VTE?: No VTE Risk Level:: Medical - moderate - high VTE Device Contraindication: Treatment Not Indicated VTE Drug Contraindication: N/A - Med Ordered
[2025-03-24] MEDS: Insulin Glargine,Hum.rec.anlog 100 UNIT/ML 10 ML VIAL 35 UNIT SUBCUT (08:15)
[2025-03-24 08:49] LABS: MANUAL DIFF FLAG NO
[2025-03-24 08:56] LABS: Hematocrit 46.8 % (42.0-52.0); Hemoglobin 16.2 g/dl (14.0-18.0); Imm Gran Abs Auto 0.01 X10*3/uL (0.00-0.03); Imm Gran Pct Auto 0.2 % (0.0-0.4); Lymphocytes Absolute Auto 1.7 X10*3/uL (1.2-4.9); Mean Corpuscular HGB Conc 34.6 g/dl (31.0-36.0); Mean Corpuscular Hemoglobin 30.2 pg (27.0-33.0); Mean Corpuscular Volume 87.2 fL (80.0-98.0); NRBC Abs Auto 0.000 X10*3/uL (0.0-0.012); NRBC Pct Auto 0.0 /100WBC (0.0-0.2); Platelet Count 202 X10*3/uL (160-400); Red Blood Count 5.37 X10*6/uL (4.60-5.80); White Blood Count 6.1 X10*3/uL (4.8-10.8)
[2025-03-24 09:06] LABS: Alanine Aminotransferase 53 U/L (0-40); Albumin Level 3.7 g/dL (3.5-5.0); Alkaline Phosphatase 69 U/L (39-117); Anion Gap 10 (12-20); Aspartate Amino Transferase 32 U/L (5-37); Blood Urea Nitrogen 15 mg/dL (9-16); Calcium 8.1 mg/dL (8.4-10.2); Carbon Dioxide 22 mmol/L (22-29); Chloride 110 mmol/L (96-108); Creatinine Clr Calc Pharmacy 151.4; Estimated Glomerular Filt Rate > 60; Magnesium 1.9 mg/dL (1.6-2.6); Potassium 3.9 mmol/L (3.3-5.1); Sodium 138 mmol/L (135-145); Total Protein 6.4 g/dL (6.5-8.0)
--- NOTE | 2025-03-24 10:38 | P.PNCA_ITS ---
Subjective Subjective Date of Service: 03/24/25 Principal diagnosis: SVT. Interval history: Patient says he is feeling a lot better. Blood pressure is much better control. However with reduction Cardizem dose he has tachycardia. Surprisingly sinus rhythm with clear P-waves during this tachycardia which could represent atrial tachycardia. However he says palpitation much improved. No chest pain or shortness of breath. His troponins minimally elevated. Echo showed low normal LV ejection fraction with mildly increased wall thickness without any significant wall motion abnormalities. Review of Systems Constitutional: Reports no additional constitutional complaints Eyes: Reports no additional eye complaints Cardiovascular: Denies chest pain, Reports rapid heart rate, Denies leg edema, Denies lightheadedness, Denies Loss of Consciousness and Denies dyspnea Respiratory: Reports no additional respiratory complaints and Denies dyspnea Gastrointestinal: Reports no additional gastrointestinal complaints Genitourinary: Reports no additional male genitourinary complaints Musculoskeletal: Reports no additional musculoskeletal complaints Hematologic/Lymphatic: Reports no additional hematologic/lymphatic complaints Allergic/Immunologic: Reports no additional allergic/immunologic complaints Physical Exam Vital Signs: Last Vital Signs Temp 97.0 F 03/24/25 08:00 Pulse 79 03/24/25 08:00 Resp 18 03/24/25 08:00 BP 142/78 H 03/24/25 08:00 Pulse Ox 94 03/24/25 08:00 O2 Del Method Room Air 03/24/25 08:00 O2 Flow Rate 1 03/23/25 12:56 Oxygen Flow Rate 4 03/23/25 10:17 BMI result Body Mass Index 32.7 Const General: cooperative, comfortable, no acute distress, alert, awake and anxious Nutritional Appearance: obese Orientation/consciousness: patient oriented x3 Limitations: no limitations HEENT Head: Yes normocephalic and Yes atraumatic Neck Neck: Yes trachea midline, Yes supple and Yes no JVD Resp Effort & Inspection: normal respiratory effort Auscultation: clear to auscultation bilaterally Cardio Jugular venous distension: no JVD Rate: tachycardic Rhythm: abnormal rhythm other (Intermittent tachycardia) Heart sounds: S1 normal heart sound present, S2 normal heart sound present, no click, no gallops and no murmurs GI Auscultation: normal bowel sounds Skin General skin exam: no rashes or lesions noted Neuro General: patient oriented x3 and no focal motor deficits Extrem General: Yes no clubbing, cyanosis or edema Objective Labs and Meds 03/24/25 08:36 03/24/25 08:36 Lab results: Laboratory Results - last 24 hr 03/23/25 03/23/25 03/23/25 12:55 14:12 17:43 WBC RBC Hgb Hct MCV MCH MCHC RDW Plt Count MPV Immature Gran % (Auto) Neut % (Auto) Lymph % (Auto) [place] % (Auto) Eos % (Auto) Baso % (Auto) Lymph # (Auto) [place] # (Auto) Eos # (Auto) Baso # (Auto) Abs Immat Gran (auto) Absolute Neuts (auto) Absolute Nucleated RBC Nucleated RBC % (auto) Sodium Potassium Chloride Carbon Dioxide Anion Gap BUN Creatinine Estim Creat Clear Calc Estimated GFR POC Glucose 254 H Random Glucose Calcium Magnesium 1.7 Total Bilirubin AST ALT Alkaline Phosphatase Troponin I High Sens 65.2 H D Total Protein Albumin Triglycerides Cholesterol LDL Cholesterol, Calc HDL Cholesterol Urine Color Yellow Urine Appearance Clear Urine pH 6.5 Ur Specific [place] 1.010 Urine Protein Trace Urine Glucose (UA) 500 H Urine Ketones 15 Urine Blood Negative Urine Nitrite Negative Ur Leukocyte Esterase Negative Urine Opiates Screen Not Detected Ur Buprenorphine Scrn Not Detected Ur Oxycodone Screen Not Detected Urine Methadone Screen Not Detected Urine Fentanyl Screen Not Detected Ur Barbiturates Screen Not Detected Ur Phencyclidine Scrn Not Detected Ur Amphetamines Screen Not Detected U Benzodiazepines Scrn POSITIVE H Urine Cocaine Screen Not Detected U Marijuana (THC) Screen Not Detected 03/23/25 03/24/25 03/24/25 21:44 06:12 08:36 WBC 6.1 RBC 5.37 Hgb 16.2 Hct 46.8 MCV 87.2 MCH 30.2 MCHC 34.6 RDW 12.2 Plt Count 202 MPV 11.8 Immature Gran % (Auto) 0.2 Neut % (Auto) 54.6 Lymph % (Auto) 28.7 [place] % (Auto) 6.1 Eos % (Auto) 9.9 H Baso % (Auto) 0.5 Lymph # (Auto) 1.7 [place] # (Auto) 0.4 Eos # (Auto) 0.6 H Baso # (Auto) 0.0 Abs Immat Gran (auto) 0.01 Absolute Neuts (auto) 3.3 Absolute Nucleated RBC 0.000 Nucleated RBC % (auto) 0.0 Sodium 138 Potassium 3.9 Chloride 110 H Carbon Dioxide 22 Anion Gap 10 L BUN 15 Creatinine 0.75 Estim Creat Clear Calc 151.4 Estimated GFR > 60 POC Glucose 189 H Random Glucose 241 H Calcium 8.1 L Magnesium 1.9 Total Bilirubin 0.5 AST 32 ALT 53 H Alkaline Phosphatase 69 Troponin I High Sens Total Protein 6.4 L Albumin 3.7 Triglycerides 124 Cholesterol 121 LDL Cholesterol, Calc 66 HDL Cholesterol 31 L Urine Color Urine Appearance Urine pH Ur Specific Valentine Urine Protein Urine Glucose (UA) Urine Ketones Urine Blood Urine Nitrite Ur Leukocyte Esterase Urine Opiates Screen Ur Buprenorphine Scrn Ur Oxycodone Screen Urine Methadone Screen Urine Fentanyl Screen Ur Barbiturates Screen Ur Phencyclidine Scrn Ur Amphetamines Screen U Benzodiazepines Scrn Urine Cocaine Screen U Marijuana (THC) Screen Imaging Radiologist's impression: Impressions Chest X-Ray 03/23/25 13:11 IMPRESSION: Limited examination due to artifacts. No gross abnormality is seen. Electronically signed by: Shiraz Simeon MD 03/23/2025 01:21 PM [facility] [place] Progress Note: A&P Assessment and plan (1) SVT (supraventricular tachycardia): Status: Acute Assessment and Plan: Difficult control SVT although his hemodynamics have improved with better control of SVT he is not having recurrent runs. Only having short runs. There has been difficulty in reducing Cardizem dose. I would at this point time start him on metoprolol 25 mg q.6 hours p.o. and gradually down titrate Cardizem without stopping it completely. As he tolerates and has more doses of metoprolol in his we can gradually continue to taper Cardizem therapy. Also add digoxin 0.25 mg p.o. to his regimen. Continue monitor. Also please check TSH. Will follow with you Time Spent With Patient Time: Total time managing care of this patient today ____ minutes. Procedures Date of Service Date of Service: 03/24/25
[2025-03-24 12:07] LABS: Glucose, Whole Blood 191 mg/dL (60-115)
[2025-03-24 12:08] LABS: Glucose, Whole Blood 211 mg/dL (60-115)
[2025-03-24 12:45] LABS: Thyroid Stimulating Hormone 1.61 uIU/mL (0.32-4.0)
[2025-03-24] MEDS: Nicotine 21 MG PATCH.TD24 TRANSDERMA (14:49)
[2025-03-24 15:50] LABS: Glucose, Whole Blood 283 mg/dL (60-115)
--- NOTE | 2025-03-24 16:02 | PM.EVENT ---
Event Note Date of Service: 03/24/25 Event Note: Was notified of a [address] Joy, Cardiology notified We will stop Cardizem drip We will get an EKG Electrolytes being checked and repleted to goal Time Spent With Patient Time: Total time managing care of this patient today ____ minutes.
[2025-03-24] MEDS: Milk of Magnesia 30 ML ORAL.SUSP PO (16:21)
[2025-03-24] MEDS: 0.9 % Sodium Chloride Flush 3 ML SYRINGE IVFLUSH (17:11)
[2025-03-24 20:49] LABS: Glucose, Whole Blood 205 mg/dL (60-115)
--- NOTE | 2025-03-25 | ECG_ITS ---
Test Reason : tachycardia, pauses Blood Pressure : */* mmHG Vent. Rate : 110 BPM Atrial Rate : 110 BPM P-R Int : 208 ms QRS Dur : 94 ms QT Int : 330 ms P-R-T Axes : 74 83 55 degrees QTcB Int : 446 ms Sinus tachycardia with occasional Premature ventricular complexes Otherwise normal ECG When compared to the previous EKG of Premature ventricular complexes are now Present Referred By: Lisa Cardoso Electronically Signed By: VELIA TOLLIVER MD
[2025-03-25 03:12] VITALS: BP 150/110; PULSE 119; RESP 16; TEMP 36.8; O2SAT 95
--- NOTE | 2025-03-25 04:41 | ECG_ITS ---
Test Reason : dysrhythmia Blood Pressure : */* mmHG Vent. Rate : 111 BPM Atrial Rate : 111 BPM P-R Int : 204 ms QRS Dur : 90 ms QT Int : 324 ms P-R-T Axes : 70 87 60 degrees QTcB Int : 440 ms Sinus tachycardia Otherwise normal ECG When compared with ECG of 24-Mar-2025 16:23, Atrial tachycardia bursts are not present Referred By: Lisa Cardoso Electronically Signed By: VELIA TOLLIVER MD
[2025-03-25 06:36] LABS: MANUAL DIFF FLAG NO
[2025-03-25 06:40] LABS: Hematocrit 49.6 % (42.0-52.0); Hemoglobin 16.9 g/dl (14.0-18.0); Imm Gran Abs Auto 0.01 X10*3/uL (0.00-0.03); Imm Gran Pct Auto 0.1 % (0.0-0.4); Lymphocytes Absolute Auto 2.4 X10*3/uL (1.2-4.9); Mean Corpuscular HGB Conc 34.1 g/dl (31.0-36.0); Mean Corpuscular Hemoglobin 29.9 pg (27.0-33.0); Mean Corpuscular Volume 87.6 fL (80.0-98.0); NRBC Abs Auto 0.000 X10*3/uL (0.0-0.012); NRBC Pct Auto 0.0 /100WBC (0.0-0.2); Platelet Count 203 X10*3/uL (160-400); Red Blood Count 5.66 X10*6/uL (4.60-5.80); White Blood Count 7.2 X10*3/uL (4.8-10.8)
[2025-03-25 06:55] LABS: Alanine Aminotransferase 58 U/L (0-40); Albumin Level 4.0 g/dL (3.5-5.0); Alkaline Phosphatase 68 U/L (39-117); Anion Gap 11 (12-20); Aspartate Amino Transferase 31 U/L (5-37); Blood Urea Nitrogen 16 mg/dL (9-16); Calcium 8.9 mg/dL (8.4-10.2); Carbon Dioxide 25 mmol/L (22-29); Chloride 108 mmol/L (96-108); Creatinine Clr Calc Pharmacy 138.5; Estimated Glomerular Filt Rate > 60; Magnesium 2.1 mg/dL (1.6-2.6); Potassium 4.2 mmol/L (3.3-5.1); Sodium 140 mmol/L (135-145); Total Protein 6.9 g/dL (6.5-8.0)
[2025-03-25 06:59] LABS: Troponin-I High Sensitivity 39.1 ng/L (<3.5-35.0)
[2025-03-25 07:25] LABS: Glucose, Whole Blood 176 mg/dL (60-115)
--- NOTE | 2025-03-25 07:35 | P.PNIM_ITS ---
Subjective Subjective Date of Service: 03/25/25 Interval History: Pt has difficult to control Sinus tachycardia Cardiology mx Review of Systems Review of Systems: Yes all other systems are reviewed and are negative Physical Exam 2 Exam: Exam: General resting comfortably in no acute distress. CVS sinus tachy Respiratory lungs clear to auscultation, no respiratory distress, no wheeze, no rhonchi. Gastrointestinal abdomen soft, non tender, bowel sounds audible, no guarding , no rigidity. Psych appropriate affect Vital Signs: Vital Signs: Last Vital Signs Temp 98.2 F 03/25/25 03:12 Pulse 119 H 03/25/25 03:12 Resp 16 03/25/25 03:12 BP 150/110 H 03/25/25 03:12 Pulse Ox 95 03/25/25 03:12 O2 Del Method Room Air 03/25/25 03:12 O2 Flow Rate 1 03/23/25 12:56 Oxygen Flow Rate 4 03/23/25 10:17 BMI result Body Mass Index 32.7 Objective Data Active Medications Acetaminophen (Acetaminophen 325 Mg Tablet) 650 mg PO Q6H PRN PRN Reason: Pain, Mild 1-3,fever,headache Last Admin: 03/25/25 06:11 Dose: 650 mg Documented By: MIC Al Hydroxide/Mg Hydroxide (Magnesium Hydrox/Alum Hydrox 30 Ml Oral.Susp) 30 ml PO Q4H PRN PRN Reason: Heartburn Atorvastatin Calcium (Atorvastatin Calcium 20 Mg Tablet) 20 mg PO DAILY [facility] Last Admin: 03/24/25 08:14 Dose: 20 mg Documented By: BRIT Calcium Carbonate (Calcium Carbonate 750 Mg Tab.Chew) 750 mg PO Q4H PRN PRN Reason: Heartburn Dextrose (Dextrose 50 % 25 Gm/50 Ml Syringe) 25 gm IVPUSH Q15M PRN; Protocol PRN Reason: per Hypoglycemia Standing Ord. Digoxin (Digoxin 0.25 Mg Tablet) 0.25 mg PO DAILY [facility]; Protocol Last Admin: 03/24/25 12:12 Dose: 0.25 mg Documented By: BRIT Docusate Sodium (Docusate Sodium 100 Mg Capsule) 100 mg PO BID PRN PRN Reason: Constipation Glucose (Glucose Gel 15 Gm Gel..Gram.) 15 gm PO Q15M PRN; Protocol PRN Reason: per Hypoglycemia Standing Ord. Diltiazem HCl 125 mg/ Sodium (Chloride) 125 mls @ 0 mls/hr IVCONT .Q0M [facility]; Protocol Insulin Glargine (Insulin Glargine,Hum.Rec.Anlog 100 Unit/Ml 10 Ml Vial) 35 unit SUBCUT DAILY [facility] Last Admin: 03/24/25 08:15 Dose: 35 unit Documented By: BRIT Insulin Human Lispro (Insulin Lispro 100 Unit/Ml 3 Ml Vial) 0 unit SUBCUT QIDACHS [facility]; Protocol Last Admin: 03/24/25 21:56 Dose: 4 unit Documented By: MIC Magnesium Hydroxide (Milk Of Magnesia 30 Ml Oral.Susp) 30 ml PO DAILY PRN PRN Reason: Constipation Last Admin: 03/24/25 16:21 Dose: 30 ml Documented By: BRIT Melatonin (Melatonin 3 Mg Tablet) 6 mg PO BEDTIME PRN PRN Reason: Insomnia Metoprolol Tartrate (Metoprolol Tartrate 25 Mg Tablet) 25 mg PO QID [facility]; Protocol Last Admin: 03/24/25 20:57 Dose: 25 mg Documented By: MIC Nicotine (Nicotine 21 Mg Patch.Td24) 21 mg TRANSDERMA DAILY [facility] Last Admin: 03/24/25 14:49 Dose: 21 mg Documented By: BRIT Nicotine Polacrilex (Nicotine Polacrilex 2 Mg Gum) 2 mg BUCCAL Q2H PRN PRN Reason: Nicotine Cravings Ondansetron HCl (Ondansetron Hcl 4 Mg/2 Ml Vial) 4 mg IVPUSH Q8H PRN PRN Reason: Nausea and Vomiting Polyethylene Glycol (Polyethylene Glycol 3350 17 Gm Powd.Pack) 17 gm PO DAILY [facility] Last Admin: 03/24/25 19:55 Dose: Not Given Documented By: BRIT Non-Admin Reason: gave MOM Sodium Chloride (0.9 % Sodium Chloride Flush 3 Ml Syringe) 3 ml IVFLUSH QSHIFT [facility] Last Admin: 03/25/25 02:40 Dose: Not Given Documented By: MIC Non-Admin Reason: Patient Asleep Labs 03/25/25 06:17 03/25/25 06:17 Labs: Laboratory Results - last 24 hr 03/24/25 03/24/25 03/24/25 07:34 08:36 11:45 MCV 87.2 MCH 30.2 MCHC 34.6 RDW 12.2 Plt Count 202 MPV 11.8 Immature Gran % (Auto) 0.2 Neut % (Auto) 54.6 Lymph % (Auto) 28.7 [place] % (Auto) 6.1 Eos % (Auto) 9.9 H Baso % (Auto) 0.5 Lymph # (Auto) 1.7 [place] # (Auto) 0.4 Eos # (Auto) 0.6 H Baso # (Auto) 0.0 Abs Immat Gran (auto) 0.01 Absolute Neuts (auto) 3.3 Absolute Nucleated RBC 0.000 Nucleated RBC % (auto) 0.0 Anion Gap 10 L Estim Creat Clear Calc 151.4 Estimated GFR > 60 POC Glucose 191 H 211 H Random Glucose 241 H Estimat Average Glucose 249 Hemoglobin A1c % 10.3 H Calcium 8.1 L Magnesium 1.9 Total Bilirubin 0.5 Direct Bilirubin 0.2 AST 32 ALT 53 H Alkaline Phosphatase 69 Troponin I High Sens Total Protein 6.4 L Albumin 3.7 TSH 1.61 03/24/25 03/24/25 03/25/25 15:42 20:38 06:17 MCV 87.6 MCH 29.9 MCHC 34.1 RDW 12.0 Plt Count 203 MPV 11.5 Immature Gran % (Auto) 0.1 Neut % (Auto) 50.9 Lymph % (Auto) 32.5 [place] % (Auto) 6.5 Eos % (Auto) 9.3 H Baso % (Auto) 0.7 Lymph # (Auto) 2.4 [place] # (Auto) 0.5 Eos # (Auto) 0.7 H Baso # (Auto) 0.1 Abs Immat Gran (auto) 0.01 Absolute Neuts (auto) 3.7 Absolute Nucleated RBC 0.000 Nucleated RBC % (auto) 0.0 Anion Gap 11 L Estim Creat Clear Calc 138.5 Estimated GFR > 60 POC Glucose 283 H 205 H Random Glucose 161 H Estimat Average Glucose Hemoglobin A1c % Calcium 8.9 D Magnesium 2.1 Total Bilirubin 0.7 Direct Bilirubin AST 31 ALT 58 H Alkaline Phosphatase 68 Troponin I High Sens 39.1 H Total Protein 6.9 Albumin 4.0 TSH 03/25/25 07:17 MCV MCH MCHC RDW Plt Count MPV Immature Gran % (Auto) Neut % (Auto) Lymph % (Auto) [place] % (Auto) Eos % (Auto) Baso % (Auto) Lymph # (Auto) [place] # (Auto) Eos # (Auto) Baso # (Auto) Abs Immat Gran (auto) Absolute Neuts (auto) Absolute Nucleated RBC Nucleated RBC % (auto) Anion Gap Estim Creat Clear Calc Estimated GFR POC Glucose 176 H Random Glucose Estimat Average Glucose Hemoglobin A1c % Calcium Magnesium Total Bilirubin Direct Bilirubin AST ALT Alkaline Phosphatase Troponin I High Sens Total Protein Albumin TSH Assessment and Plan (1) Sinus tachycardia: Status: Acute Plan 44-year-old gentleman with past medical history of SVT s/p ablation 6 years ago was doing fine up until recently when his metoprolol was discontinued patient developed episodes of intermittent palpitations and lightheadedness. Recalcitrant SVT associated with hypotension Sinus tachycadia Likely in the setting of loss to f/up Pt developed vasovagal pause yest noted on tele quickly fowwloed by sinus tachy with req adjustment in cardizem drip Digoxin and cardizem drip DC, hold all Li blocking agents Started on Multaq with cardiology input Continue tele monitor Troponin peaked Echocardiogram no ventricular or valvular deficits noted Severe HTN SBP today 170s-180s Prn HTN meds with parameters Checking urine metanephrines Chronic med conditions: Diabetes mellitus type [address] on diabetic diet/insulin sliding scale hold metformin, point of care blood sugar monitoring. Checking A1c Tobacco use disorder counseling done place on nicotine gum Alcohol use disorder drink heavily over weekend strongly recommend to abstain from alcohol, no history of prior withdrawal, follow CIWA. DVT prophylaxis subQ Lovenox Full code In my clinical judgment patient require ongoing hosp given diff to control sinus tachy Quality Stroke Does the patient have a stroke diagnosis?: No VTE Prior VTE?: No VTE Risk Level:: Medical - moderate - high VTE Device Contraindication: Treatment Not Indicated VTE Drug Contraindication: N/A - Med Ordered
[2025-03-25 07:59] VITALS: BP 158/101; PULSE 113; RESP 18; TEMP 36.5; O2SAT 92
[2025-03-25] MEDS: Insulin Glargine,Hum.rec.anlog 100 UNIT/ML 10 ML VIAL 35 UNIT SUBCUT (08:35)
[2025-03-25] MEDS: Nicotine 21 MG PATCH.TD24 TRANSDERMA (08:36)
[2025-03-25] MEDS: 0.9 % Sodium Chloride Flush 3 ML SYRINGE IVFLUSH ×2 (08:36→17:15)
[2025-03-25 11:38] LABS: Glucose, Whole Blood 207 mg/dL (60-115)
[2025-03-25 11:40] VITALS: BP 166/113; PULSE 120; RESP 20; TEMP 36.8; O2SAT 96
--- NOTE | 2025-03-25 13:13 | MHC.CM.PN ---
PER MD ROUNDS, PT WILL REQUIRE 1-2 MORE DAYS INPT DCP: HOME VIA PRIVATE TRANSPORT
--- NOTE | 2025-03-25 14:31 | PM.PNCARD ---
Subjective Subjective Date of Service: 03/25/25 Principal diagnosis: SVT. Interval history: Patient had 1 pause yesterday while he was straining after he had received couple of AV alida blocking agent. Patient continues to have intermittent episodes of fast heart rate which are now suggestive of atrial tachycardia with follow up with a sinus beat and then followed by another run of atrial tachycardia. Patient's blood pressure is elevated. No other fever or chills. Review of Systems Constitutional: Reports no additional constitutional complaints Cardiovascular: Denies chest pain, Reports rapid heart rate, Denies palpitations and Denies dyspnea Respiratory: Reports no additional respiratory complaints and Denies dyspnea Endocrine: Denies palpitations Physical Exam Vital Signs: Last Vital Signs Temp 98.3 F 03/25/25 11:40 Pulse 120 H 03/25/25 11:40 Resp 20 03/25/25 11:40 BP 166/113 H 03/25/25 11:40 Pulse Ox 96 03/25/25 11:40 O2 Del Method Room Air 03/25/25 11:40 O2 Flow Rate 1 03/23/25 12:56 Oxygen Flow Rate 4 03/23/25 10:17 BMI result Body Mass Index 32.7 Const General: cooperative, comfortable, no acute distress, alert, awake and anxious Nutritional Appearance: obese Orientation/consciousness: patient oriented x3 Limitations: no limitations HEENT Head: Yes normocephalic and Yes atraumatic Neck Neck: Yes trachea midline, Yes supple and Yes no JVD Resp Effort & Inspection: normal respiratory effort Auscultation: clear to auscultation bilaterally Cardio Jugular venous distension: no JVD Rate: tachycardic Rhythm: abnormal rhythm other (Intermittent tachycardia) Heart sounds: S1 normal heart sound present, S2 normal heart sound present, no click, no gallops and no murmurs GI Auscultation: normal bowel sounds Skin General skin exam: no rashes or lesions noted Neuro General: patient oriented x3 and no focal motor deficits Extrem General: Yes no clubbing, cyanosis or edema Objective Labs and Meds 03/25/25 06:17 03/25/25 06:17 Lab results: Laboratory Results - last 24 hr 03/24/25 03/24/25 03/25/25 15:42 20:38 06:17 WBC 7.2 RBC 5.66 Hgb 16.9 Hct 49.6 MCV 87.6 MCH 29.9 MCHC 34.1 RDW 12.0 Plt Count 203 MPV 11.5 Immature Gran % (Auto) 0.1 Neut % (Auto) 50.9 Lymph % (Auto) 32.5 [place] % (Auto) 6.5 Eos % (Auto) 9.3 H Baso % (Auto) 0.7 Lymph # (Auto) 2.4 [place] # (Auto) 0.5 Eos # (Auto) 0.7 H Baso # (Auto) 0.1 Abs Immat Gran (auto) 0.01 Absolute Neuts (auto) 3.7 Absolute Nucleated RBC 0.000 Nucleated RBC % (auto) 0.0 Sodium 140 Potassium 4.2 Chloride 108 Carbon Dioxide 25 Anion Gap 11 L BUN 16 Creatinine 0.82 Estim Creat Clear Calc 138.5 Estimated GFR > 60 POC Glucose 283 H 205 H Random Glucose 161 H Calcium 8.9 D Magnesium 2.1 Total Bilirubin 0.7 AST 31 ALT 58 H Alkaline Phosphatase 68 Troponin I High Sens 39.1 H Total Protein 6.9 Albumin 4.0 03/25/25 03/25/25 07:17 11:31 WBC RBC Hgb Hct MCV MCH MCHC RDW Plt Count MPV Immature Gran % (Auto) Neut % (Auto) Lymph % (Auto) [place] % (Auto) Eos % (Auto) Baso % (Auto) Lymph # (Auto) [place] # (Auto) Eos # (Auto) Baso # (Auto) Abs Immat Gran (auto) Absolute Neuts (auto) Absolute Nucleated RBC Nucleated RBC % (auto) Sodium Potassium Chloride Carbon Dioxide Anion Gap BUN Creatinine Estim Creat Clear Calc Estimated GFR POC Glucose 176 H 207 H Random Glucose Calcium Magnesium Total Bilirubin AST ALT Alkaline Phosphatase Troponin I High Sens Total Protein Albumin Progress Note: A&P Assessment and plan (1) SVT (supraventricular tachycardia): Status: Acute Assessment and Plan: Recurrent SVT with telemetry suggestive of atrial tachycardia with intermittent sinus rhythm with bursts. He also was hypertensive. I think he would probably need antiarrhythmic drug therapy. Would start him on Multaq 400 mg b.i.d. and assess his response. Continue full disclosure cardiac telemetry. Also treat his hypertension I would continue with metoprolol therapy. Avoid other rate lowering therapy such as Cardizem and digoxin. If Multaq is not effective will probably switch him to flecainide therapy. Overall very unusual SVT/atrial tachycardia case. Will check plasma metanephrine levels. Continue treat anxiety. His pause appear time he was straining and was getting dual AV alida blocking agents and most likely suggest vagal response Will follow with you Time Spent With Patient Time: Total time managing care of this patient today ____ minutes. Progress Note: Quality Stroke Does the patient have a stroke diagnosis?: No Procedures Date of Service Date of Service: 03/25/25
--- NOTE | 2025-03-25 14:55 | ECG_ITS ---
Test Reason : cp Blood Pressure : */* mmHG Vent. Rate : 111 BPM Atrial Rate : 111 BPM P-R Int : 198 ms QRS Dur : 88 ms QT Int : 310 ms P-R-T Axes : 59 62 49 degrees QTcB Int : 421 ms Sinus tachycardia Otherwise normal ECG When compared with ECG of 25-Mar-2025 04:54, Premature ventricular complexes are no longer Present Referred By: Karine Wise Electronically Signed By: VELIA TOLLIVER MD
[2025-03-25 15:06] VITALS: BP 164/107; PULSE 115; RESP 18; TEMP 36.1; O2SAT 93
[2025-03-25 16:07] LABS: Glucose, Whole Blood 190 mg/dL (60-115)
[2025-03-25 18:41] LABS: Cannabinoid Screen Urine Not Detected (Not Detect)
[2025-03-25 19:47] VITALS: BP 139/97; PULSE 109; RESP 18; TEMP 36.6; O2SAT 95
[2025-03-25 20:34] LABS: Glucose, Whole Blood 256 mg/dL (60-115)
[2025-03-25 23:56] VITALS: BP 156/99; PULSE 111; RESP 18; TEMP 36.3; O2SAT 93
[2025-03-26] VITALS (8 sets, daily range): BP systolic 118–151; BP diastolic 85–95; PULSE 100–144; RESP 17–20; TEMP 35.9–36.6; O2SAT 94–97
[2025-03-26] MEDS: 0.9 % Sodium Chloride Flush 3 ML SYRINGE IVFLUSH ×3 (00:30→15:17)
[2025-03-26 07:18] LABS: Glucose, Whole Blood 182 mg/dL (60-115)
[2025-03-26 07:30] LABS: MANUAL DIFF FLAG NO
--- NOTE | 2025-03-26 07:33 | P.PNIM_ITS ---
Subjective Subjective Date of Service: 03/26/25 Interval History: Patient not responding to Multaq Switching to flecainide Answered the patient's questions Review of Systems Review of Systems: Yes all other systems are reviewed and are negative Physical Exam 2 Exam: Exam: General resting comfortably in no acute distress. CVS sinus tachy Respiratory lungs clear to auscultation, no respiratory distress, no wheeze, no rhonchi. Gastrointestinal abdomen soft, non tender, bowel sounds audible, no guarding , no rigidity. Psych appropriate affect Vital Signs: Vital Signs: Last Vital Signs Temp 97.2 F 03/26/25 07:22 Pulse 109 H 03/26/25 07:22 Resp 20 03/26/25 07:22 BP 118/95 H 03/26/25 07:22 Pulse Ox 96 03/26/25 07:22 O2 Del Method Room Air 03/26/25 07:22 O2 Flow Rate 1 03/23/25 12:56 Oxygen Flow Rate 4 03/23/25 10:17 BMI result Body Mass Index 32.7 Objective Data Active Medications Acetaminophen (Acetaminophen 325 Mg Tablet) 650 mg PO Q6H PRN PRN Reason: Pain, Mild 1-3,fever,headache Last Admin: 03/25/25 06:11 Dose: 650 mg Documented By: MIC Al Hydroxide/Mg Hydroxide (Magnesium Hydrox/Alum Hydrox 30 Ml Oral.Susp) 30 ml PO Q4H PRN PRN Reason: Heartburn Atorvastatin Calcium (Atorvastatin Calcium 20 Mg Tablet) 20 mg PO DAILY [facility] Last Admin: 03/25/25 08:35 Dose: 20 mg Documented By: BRADEN Calcium Carbonate (Calcium Carbonate 750 Mg Tab.Chew) 750 mg PO Q4H PRN PRN Reason: Heartburn Dextrose (Dextrose 50 % 25 Gm/50 Ml Syringe) 25 gm IVPUSH Q15M PRN; Protocol PRN Reason: per Hypoglycemia Standing Ord. Docusate Sodium (Docusate Sodium 100 Mg Capsule) 100 mg PO BID PRN PRN Reason: Constipation Dronedarone (Dronedarone Hcl 400 Mg Tablet) 400 mg PO BID [facility] Last Admin: 03/25/25 20:55 Dose: 400 mg Documented By: MIC Glucose (Glucose Gel 15 Gm Gel..Gram.) 15 gm PO Q15M PRN; Protocol PRN Reason: per Hypoglycemia Standing Ord. Diltiazem HCl 125 mg/ Sodium (Chloride) 125 mls @ 0 mls/hr IVCONT .Q0M [facility]; Protocol Insulin Glargine (Insulin Glargine,Hum.Rec.Anlog 100 Unit/Ml 10 Ml Vial) 35 unit SUBCUT DAILY [facility] Last Admin: 03/25/25 08:35 Dose: 35 unit Documented By: BRADEN Insulin Human Lispro (Insulin Lispro 100 Unit/Ml 3 Ml Vial) 0 unit SUBCUT QIDACHS [facility]; Protocol Last Admin: 03/25/25 20:56 Dose: 6 unit Documented By: MIC Magnesium Hydroxide (Milk Of Magnesia 30 Ml Oral.Susp) 30 ml PO DAILY PRN PRN Reason: Constipation Last Admin: 03/24/25 16:21 Dose: 30 ml Documented By: BRIT Melatonin (Melatonin 3 Mg Tablet) 6 mg PO BEDTIME PRN PRN Reason: Insomnia Metoprolol Tartrate (Metoprolol Tartrate 25 Mg Tablet) 25 mg PO QID [facility]; Protocol Last Admin: 03/25/25 20:55 Dose: 25 mg Documented By: MIC Nicotine (Nicotine 21 Mg Patch.Td24) 21 mg TRANSDERMA DAILY [facility] Last Admin: 03/25/25 08:36 Dose: 21 mg Documented By: BRADEN Nicotine Polacrilex (Nicotine Polacrilex 2 Mg Gum) 2 mg BUCCAL Q2H PRN PRN Reason: Nicotine Cravings Ondansetron HCl (Ondansetron Hcl 4 Mg/2 Ml Vial) 4 mg IVPUSH Q8H PRN PRN Reason: Nausea and Vomiting Polyethylene Glycol (Polyethylene Glycol 3350 17 Gm Powd.Pack) 17 gm PO DAILY [facility] Last Admin: 03/25/25 08:37 Dose: 17 gm Documented By: BRADEN Sodium Chloride (0.9 % Sodium Chloride Flush 3 Ml Syringe) 3 ml IVFLUSH QSHIFT [facility] Last Admin: 03/26/25 00:30 Dose: 3 ml Documented By: MIC Labs 03/26/25 06:47 03/26/25 06:47 Labs: Laboratory Results - last 24 hr 03/25/25 03/25/25 03/25/25 11:31 16:02 17:32 POC Glucose 207 H 190 H Urine Opiates Screen Not Detected Ur Buprenorphine Scrn Not Detected Ur Oxycodone Screen Not Detected Urine Methadone Screen Not Detected Urine Fentanyl Screen Not Detected Ur Barbiturates Screen Not Detected Ur Phencyclidine Scrn Not Detected Ur Amphetamines Screen Not Detected U Benzodiazepines Scrn Not Detected Urine Cocaine Screen Not Detected U Marijuana (THC) Screen Not Detected 03/25/25 03/26/25 20:30 07:12 POC Glucose 256 H 182 H Urine Opiates Screen Ur Buprenorphine Scrn Ur Oxycodone Screen Urine Methadone Screen Urine Fentanyl Screen Ur Barbiturates Screen Ur Phencyclidine Scrn Ur Amphetamines Screen U Benzodiazepines Scrn Urine Cocaine Screen U Marijuana (THC) Screen Assessment and Plan (1) Sinus tachycardia: Status: Acute Plan 44-year-old gentleman with past medical history of SVT s/p ablation 6 years ago was doing fine up until recently when his metoprolol was discontinued patient developed episodes of intermittent palpitations and lightheadedness. #Recalcitrant SVT associated with hypotension #Sinus tachycadia Likely in the setting of loss to f/up Pt developed vasovagal pause a few days ago noted on tele quickly fowwloed by sinus tachy with req adjustment of multiple drips Cardizem, digoxin, failed treatment with Multaq, patient also failed cardioversion x2 on the way to the ED Continue tele monitor Troponin peaked Echocardiogram no ventricular or valvular deficits noted DC all drips and hold all alida blocking agents Started on flecainide as of 03/26/2025 with cardiology input Increase metoprolol dose to 50 q.6, not Q ID per cardiology #Severe HTN SBP has been fluctuating with SBP in the 120s to 180s requiring titrations daily Prn HTN meds with parameters being adjusted daily Checking urine metanephrines-send out we will take time Low-sodium diet Chronic med conditions: Diabetes mellitus type [address] on diabetic diet/insulin sliding scale hold metformin, point of care blood sugar monitoring. Checking A1c Tobacco use disorder counseling done place on nicotine gum Alcohol use disorder drink heavily over weekend strongly recommend to abstain from alcohol, no history of prior withdrawal, follow CIWA. DVT prophylaxis subQ Lovenox Full code In my clinical judgment patient require ongoing hosp given diff to control sinus tachy Quality Stroke Does the patient have a stroke diagnosis?: No VTE Prior VTE?: No VTE Risk Level:: Medical - moderate - high VTE Device Contraindication: Treatment Not Indicated VTE Drug Contraindication: N/A - Med Ordered
[2025-03-26 07:34] LABS: Hematocrit 49.4 % (42.0-52.0); Hemoglobin 17.0 g/dl (14.0-18.0); Imm Gran Abs Auto 0.01 X10*3/uL (0.00-0.03); Imm Gran Pct Auto 0.1 % (0.0-0.4); Lymphocytes Absolute Auto 2.2 X10*3/uL (1.2-4.9); Mean Corpuscular HGB Conc 34.4 g/dl (31.0-36.0); Mean Corpuscular Hemoglobin 30.0 pg (27.0-33.0); Mean Corpuscular Volume 87.1 fL (80.0-98.0); NRBC Abs Auto 0.000 X10*3/uL (0.0-0.012); NRBC Pct Auto 0.0 /100WBC (0.0-0.2); Platelet Count 216 X10*3/uL (160-400); Red Blood Count 5.67 X10*6/uL (4.60-5.80); White Blood Count 7.7 X10*3/uL (4.8-10.8)
[2025-03-26 07:54] LABS: Alanine Aminotransferase 65 U/L (0-40); Albumin Level 3.9 g/dL (3.5-5.0); Alkaline Phosphatase 75 U/L (39-117); Anion Gap 10 (12-20); Aspartate Amino Transferase 28 U/L (5-37); Blood Urea Nitrogen 16 mg/dL (9-16); Calcium 8.4 mg/dL (8.4-10.2); Carbon Dioxide 24 mmol/L (22-29); Chloride 110 mmol/L (96-108); Creatinine Clr Calc Pharmacy 145.6; Estimated Glomerular Filt Rate > 60; Magnesium 2.0 mg/dL (1.6-2.6); Potassium 4.0 mmol/L (3.3-5.1); Sodium 140 mmol/L (135-145); Total Protein 6.8 g/dL (6.5-8.0)
--- NOTE | 2025-03-26 08:11 | PC.NURSE ---
SVT 160 , down to 144 , pt stated that he was washing his face at the time it happened, denied dizziness , no sob, HR 125 at rest now ,
[2025-03-26] MEDS: Nicotine 21 MG PATCH.TD24 TRANSDERMA (08:42)
[2025-03-26] MEDS: Insulin Glargine,Hum.rec.anlog 100 UNIT/ML 10 ML VIAL 35 UNIT SUBCUT (08:43)
[2025-03-26 10:58] LABS: Glucose, Whole Blood 170 mg/dL (60-115)
--- NOTE | 2025-03-26 14:48 | PM.PNCARD ---
Subjective Subjective Date of Service: 03/26/25 Principal diagnosis: SVT. Interval history: Patient has a recurrent narrow complex tachycardia consistent with SVT. Also having intermittent episodes of bursts of fast heart rate which on monitor appear to be sinus tachycardia but I think this is most suggestive of atrial tachycardia. Overall underlying otherwise normal sinus rhythm. No pauses overnight. Blood pressure remains elevated. Has had no significant change since Multaq therapy. Review of Systems Constitutional: Reports no additional constitutional complaints Cardiovascular: Denies chest pain, Reports rapid heart rate, Denies lightheadedness and Denies dyspnea Respiratory: Reports no additional respiratory complaints and Denies dyspnea Physical Exam Vital Signs: Last Vital Signs Temp 97.2 F 03/26/25 11:03 Pulse 105 H 03/26/25 11:03 Resp 18 03/26/25 11:03 BP 123/91 H 03/26/25 11:03 Pulse Ox 96 03/26/25 11:03 O2 Del Method Room Air 03/26/25 11:03 O2 Flow Rate 1 03/23/25 12:56 Oxygen Flow Rate 4 03/23/25 10:17 BMI result Body Mass Index 32.7 Const General: cooperative, comfortable, no acute distress, alert, awake and anxious Nutritional Appearance: obese Orientation/consciousness: patient oriented x3 Limitations: no limitations HEENT Head: Yes normocephalic and Yes atraumatic Neck Neck: Yes trachea midline, Yes supple and Yes no JVD Resp Effort & Inspection: normal respiratory effort Auscultation: clear to auscultation bilaterally Cardio Jugular venous distension: no JVD Rate: tachycardic Rhythm: abnormal rhythm other (Intermittent tachycardia) Heart sounds: S1 normal heart sound present, S2 normal heart sound present, no click, no gallops and no murmurs GI Auscultation: normal bowel sounds Skin General skin exam: no rashes or lesions noted Neuro General: patient oriented x3 and no focal motor deficits Extrem General: Yes no clubbing, cyanosis or edema Objective Labs and Meds 03/26/25 06:47 03/26/25 06:47 Lab results: Laboratory Results - last 24 hr 03/25/25 03/25/25 03/25/25 16:02 17:32 20:30 WBC RBC Hgb Hct MCV MCH MCHC RDW Plt Count MPV Immature Gran % (Auto) Neut % (Auto) Lymph % (Auto) [place] % (Auto) Eos % (Auto) Baso % (Auto) Lymph # (Auto) [place] # (Auto) Eos # (Auto) Baso # (Auto) Abs Immat Gran (auto) Absolute Neuts (auto) Absolute Nucleated RBC Nucleated RBC % (auto) Sodium Potassium Chloride Carbon Dioxide Anion Gap BUN Creatinine Estim Creat Clear Calc Estimated GFR POC Glucose 190 H 256 H Random Glucose Calcium Magnesium Total Bilirubin AST ALT Alkaline Phosphatase Total Protein Albumin Urine Opiates Screen Not Detected Ur Buprenorphine Scrn Not Detected Ur Oxycodone Screen Not Detected Urine Methadone Screen Not Detected Urine Fentanyl Screen Not Detected Ur Barbiturates Screen Not Detected Ur Phencyclidine Scrn Not Detected Ur Amphetamines Screen Not Detected U Benzodiazepines Scrn Not Detected Urine Cocaine Screen Not Detected U Marijuana (THC) Screen Not Detected 03/26/25 03/26/25 03/26/25 06:47 07:12 10:52 WBC 7.7 RBC 5.67 Hgb 17.0 Hct 49.4 MCV 87.1 MCH 30.0 MCHC 34.4 RDW 12.0 Plt Count 216 MPV 11.5 Immature Gran % (Auto) 0.1 Neut % (Auto) 54.3 Lymph % (Auto) 28.7 [place] % (Auto) 6.9 Eos % (Auto) 9.6 H Baso % (Auto) 0.4 Lymph # (Auto) 2.2 [place] # (Auto) 0.5 Eos # (Auto) 0.7 H Baso # (Auto) 0.0 Abs Immat Gran (auto) 0.01 Absolute Neuts (auto) 4.2 Absolute Nucleated RBC 0.000 Nucleated RBC % (auto) 0.0 Sodium 140 Potassium 4.0 Chloride 110 H Carbon Dioxide 24 Anion Gap 10 L BUN 16 Creatinine 0.78 Estim Creat Clear Calc 145.6 Estimated GFR > 60 POC Glucose 182 H 170 H Random Glucose 195 H Calcium 8.4 Magnesium 2.0 Total Bilirubin 0.6 AST 28 ALT 65 H Alkaline Phosphatase 75 Total Protein 6.8 Albumin 3.9 Urine Opiates Screen Ur Buprenorphine Scrn Ur Oxycodone Screen Urine Methadone Screen Urine Fentanyl Screen Ur Barbiturates Screen Ur Phencyclidine Scrn Ur Amphetamines Screen U Benzodiazepines Scrn Urine Cocaine Screen U Marijuana (THC) Screen Progress Note: A&P Assessment and plan (1) SVT (supraventricular tachycardia): Status: Acute Assessment and Plan: Patient was multiple type of arrhythmias including SVT which appear to be narrow complex and AVNRT type but now also says bursts of what appears to be atrial tachycardia. Overall he is much improved compared to when he came in but still persists with tachycardia. Causes unclear and recalcitrant nature of SVT is also surprising. Has not responded to multiple different drugs. Will start Multaq and start flecainide 150 mg b.i.d.. Need to monitor EKGs and full disclosure cardiac telemetry. Risk of proarrhythmia was discussed. Continue metoprolol which can be increased to 50 mg q.6 hours. Antianxiety treatment should be provided. Plasma metanephrine levels are pending. If he has stabilizes, will consider discharge tomorrow. Will follow with you Time Spent With Patient Time: Total time managing care of this patient today ____ minutes. Progress Note: Quality Stroke Does the patient have a stroke diagnosis?: No Procedures Date of Service Date of Service: 03/26/25
--- NOTE | 2025-03-26 14:55 | ECG_ITS ---
Test Reason : rhythm check Blood Pressure : */* mmHG Vent. Rate : 105 BPM Atrial Rate : 105 BPM P-R Int : 178 ms QRS Dur : 88 ms QT Int : 286 ms P-R-T Axes : 61 74 47 degrees QTcB Int : 377 ms Sinus tachycardia Possible Left atrial enlargement Borderline ECG When compared with ECG of 25-Mar-2025 15:23, No significant change was found Referred By: Karine Wise Electronically Signed By: VELIA TOLLIVER MD
[2025-03-26 16:14] LABS: Glucose, Whole Blood 213 mg/dL (60-115)
[2025-03-26 20:28] LABS: Glucose, Whole Blood 294 mg/dL (60-115)
[2025-03-27 00:38] VITALS: PULSE 90
[2025-03-27 03:25] VITALS: BP 147/90; PULSE 95; RESP 18; TEMP 36.3; O2SAT 95
[2025-03-27 06:40] VITALS: BP 137/87; PULSE 99
[2025-03-27 07:11] VITALS: BP 127/76; PULSE 107; RESP 16; TEMP 36.1; O2SAT 96
[2025-03-27 07:15] LABS: MANUAL DIFF FLAG NO
[2025-03-27 07:19] LABS: Hematocrit 46.6 % (42.0-52.0); Hemoglobin 16.4 g/dl (14.0-18.0); Imm Gran Abs Auto 0.02 X10*3/uL (0.00-0.03); Imm Gran Pct Auto 0.3 % (0.0-0.4); Lymphocytes Absolute Auto 2.2 X10*3/uL (1.2-4.9); Mean Corpuscular HGB Conc 35.2 g/dl (31.0-36.0); Mean Corpuscular Hemoglobin 30.7 pg (27.0-33.0); Mean Corpuscular Volume 87.3 fL (80.0-98.0); NRBC Abs Auto 0.000 X10*3/uL (0.0-0.012); NRBC Pct Auto 0.0 /100WBC (0.0-0.2); Platelet Count 209 X10*3/uL (160-400); Red Blood Count 5.34 X10*6/uL (4.60-5.80); White Blood Count 7.4 X10*3/uL (4.8-10.8)
[2025-03-27 07:33] LABS: Alanine Aminotransferase 58 U/L (0-40); Albumin Level 3.8 g/dL (3.5-5.0); Alkaline Phosphatase 73 U/L (39-117); Anion Gap 10 (12-20); Aspartate Amino Transferase 23 U/L (5-37); Blood Urea Nitrogen 18 mg/dL (9-16); Calcium 8.5 mg/dL (8.4-10.2); Carbon Dioxide 25 mmol/L (22-29); Chloride 109 mmol/L (96-108); Creatinine Clr Calc Pharmacy 145.6; Estimated Glomerular Filt Rate > 60; Magnesium 1.9 mg/dL (1.6-2.6); Potassium 3.9 mmol/L (3.3-5.1); Sodium 140 mmol/L (135-145); Total Protein 6.7 g/dL (6.5-8.0)
--- NOTE | 2025-03-27 07:33 | HO.PM.IMPN ---
Subjective Subjective Date of Service: 03/27/25 Physical Exam Vital Signs: Vital Signs: Last Vital Signs Temp 96.9 F 03/27/25 07:11 Pulse 107 H 03/27/25 07:11 Resp 16 03/27/25 07:11 BP 127/76 03/27/25 07:11 Pulse Ox 96 03/27/25 07:11 O2 Del Method Room Air 03/27/25 07:11 O2 Flow Rate 1 03/23/25 12:56 Oxygen Flow Rate 4 03/23/25 10:17 BMI result Body Mass Index 32.7 Objective Data Active Medications Acetaminophen (Acetaminophen 325 Mg Tablet) 975 mg PO Q6H PRN PRN Reason: Pain, Mild 1-3,fever,headache Last Admin: 03/26/25 15:17 Dose: 975 mg Documented By: BRADEN Al Hydroxide/Mg Hydroxide (Magnesium Hydrox/Alum Hydrox 30 Ml Oral.Susp) 30 ml PO Q4H PRN PRN Reason: Heartburn Atorvastatin Calcium (Atorvastatin Calcium 20 Mg Tablet) 20 mg PO DAILY [facility] Last Admin: 03/26/25 08:41 Dose: 20 mg Documented By: BRADEN Calcium Carbonate (Calcium Carbonate 750 Mg Tab.Chew) 750 mg PO Q4H PRN PRN Reason: Heartburn Dextrose (Dextrose 50 % 25 Gm/50 Ml Syringe) 25 gm IVPUSH Q15M PRN; Protocol PRN Reason: per Hypoglycemia Standing Ord. Docusate Sodium (Docusate Sodium 100 Mg Capsule) 100 mg PO BID PRN PRN Reason: Constipation Flecainide Acetate (Flecainide Acetate 50 Mg Tablet) 50 mg PO BID [facility] Last Admin: 03/26/25 21:19 Dose: 50 mg Documented By: MIC Glucose (Glucose Gel 15 Gm Gel..Gram.) 15 gm PO Q15M PRN; Protocol PRN Reason: per Hypoglycemia Standing Ord. Insulin Glargine (Insulin Glargine,Hum.Rec.Anlog 100 Unit/Ml 10 Ml Vial) 35 unit SUBCUT DAILY [facility] Last Admin: 03/26/25 08:43 Dose: 35 unit Documented By: BRADEN Insulin Human Lispro (Insulin Lispro 100 Unit/Ml 3 Ml Vial) 0 unit SUBCUT QIDACHS [facility]; Protocol Last Admin: 03/26/25 21:20 Dose: 6 unit Documented By: MIC Magnesium Hydroxide (Milk Of Magnesia 30 Ml Oral.Susp) 30 ml PO DAILY PRN PRN Reason: Constipation Last Admin: 03/24/25 16:21 Dose: 30 ml Documented By: BRIT Melatonin (Melatonin 3 Mg Tablet) 6 mg PO BEDTIME PRN PRN Reason: Insomnia Metoprolol Tartrate (Metoprolol Tartrate 50 Mg Tablet) 50 mg PO Q6H [facility]; Protocol Last Admin: 03/27/25 06:40 Dose: 50 mg Documented By: MIC Nicotine (Nicotine 21 Mg Patch.Td24) 21 mg TRANSDERMA DAILY [facility] Last Admin: 03/26/25 08:42 Dose: 21 mg Documented By: BRADEN Nicotine Polacrilex (Nicotine Polacrilex 2 Mg Gum) 2 mg BUCCAL Q2H PRN PRN Reason: Nicotine Cravings Polyethylene Glycol (Polyethylene Glycol 3350 17 Gm Powd.Pack) 17 gm PO DAILY [facility] Last Admin: 03/26/25 08:42 Dose: 17 gm Documented By: BRADEN Sodium Chloride (0.9 % Sodium Chloride Flush 3 Ml Syringe) 3 ml IVFLUSH QSVTFT [facility] Last Admin: 03/27/25 03:42 Dose: Not Given Documented By: MIC Non-Admin Reason: Patient Asleep Labs 03/27/25 06:27 03/26/25 06:47 Labs: Laboratory Results - last 24 hr 03/26/25 03/26/25 03/26/25 06:47 10:52 16:10 MCV 87.1 MCH 30.0 MCHC 34.4 RDW 12.0 Plt Count 216 MPV 11.5 Immature Gran % (Auto) 0.1 Neut % (Auto) 54.3 Lymph % (Auto) 28.7 [place] % (Auto) 6.9 Eos % (Auto) 9.6 H Baso % (Auto) 0.4 Lymph # (Auto) 2.2 [place] # (Auto) 0.5 Eos # (Auto) 0.7 H Baso # (Auto) 0.0 Abs Immat Gran (auto) 0.01 Absolute Neuts (auto) 4.2 Absolute Nucleated RBC 0.000 Nucleated RBC % (auto) 0.0 Anion Gap 10 L Estim Creat Clear Calc 145.6 Estimated GFR > 60 POC Glucose 170 H 213 H Random Glucose 195 H Calcium 8.4 Magnesium 2.0 Total Bilirubin 0.6 AST 28 ALT 65 H Alkaline Phosphatase 75 Total Protein 6.8 Albumin 3.9 03/26/25 03/27/25 20:24 06:27 MCV 87.3 MCH 30.7 MCHC 35.2 RDW 12.2 Plt Count 209 MPV 11.8 Immature Gran % (Auto) 0.3 Neut % (Auto) 54.1 Lymph % (Auto) 29.5 [place] % (Auto) 6.0 Eos % (Auto) 9.7 H Baso % (Auto) 0.4 Lymph # (Auto) 2.2 [place] # (Auto) 0.4 Eos # (Auto) 0.7 H Baso # (Auto) 0.0 Abs Immat Gran (auto) 0.02 Absolute Neuts (auto) 4.0 Absolute Nucleated RBC 0.000 Nucleated RBC % (auto) 0.0 Anion Gap Estim Creat Clear Calc Estimated GFR POC Glucose 294 H Random Glucose Calcium Magnesium Total Bilirubin AST ALT Alkaline Phosphatase Total Protein Albumin Quality Stroke Does the patient have a stroke diagnosis?: No VTE Prior VTE?: No VTE Risk Level:: Medical - moderate - high VTE Device Contraindication: Treatment Not Indicated VTE Drug Contraindication: N/A - Med Ordered
[2025-03-27 07:50] LABS: Glucose, Whole Blood 144 mg/dL (60-115)
[2025-03-27] MEDS: 0.9 % Sodium Chloride Flush 3 ML SYRINGE IVFLUSH (08:38)
[2025-03-27] MEDS: Insulin Glargine,Hum.rec.anlog 100 UNIT/ML 10 ML VIAL 35 UNIT SUBCUT (08:38)
[2025-03-27] MEDS: Nicotine 21 MG PATCH.TD24 TRANSDERMA (08:38)
[2025-03-27 10:50] VITALS: BP 142/91; PULSE 97; RESP 16; TEMP 36.4; O2SAT 96
--- NOTE | 2025-03-27 10:52 | PM.DS ---
DS: Providers Provider Date of admission: 03/23/25 13:43 Date of discharge: 03/27/25 Primary care physician: Kelly Valencia NP Consults: 03/23/25 11:15 Consult to Cardiology Stat Consulting Provider: [facility] Reason for consultation: svt Has provider been notified: Yes DS: Diagnosis Discharge Diagnosis (1) Sinus tachycardia: Status: Acute DS: Summary Hospital Course Hospital Course: Chief Complaint: palpitations 44-year-old gentleman with past medical history of diabetes mellitus type 2 on insulin, history of SVT status post ablation 6 years ago, was subsequently on metoprolol for 5 years and never had any episode. Recently his metoprolol was discontinued by his new PCP. Two days ago he developed palpitations and went to [facility] was advice admission but patient refused admission. This morning patient developed palpitations associated with dizziness therefore called 911. EMS found patient heart rate in 200s with hypotension therefore treated with adenosine 6 mg followed by 12 mg and another 12 mg dose with no significant response therefore required cardioversion received 120 joule shock followed by 200 by EMS. Patient heart rate temporarily slowed but then rebound to 200s. In emergency room EKG showed narrow complex supraventricular tachycardia patient was treated with Cardizem heart rate slowed down but was noted to have low blood pressure 88/55. Patient currently is on Cardizem drip heart rate is controlled but noted to have recurrent episode of short burst of SVT. Patient seen by manager fine dining Dr. Reina, EKGs consistent with AVNRT, he recommended 1 dose of digoxin 0.5 mg and IV fluids patient is now being admitted to [facility] for continued monitoring and treatment of SVT at present patient denies chest pain but continued to be lightheaded and dizzy. Patient admits to drinking 1 quater of whiskey over weekend and smokes half pack per day. Hospital course: 44-year-old gentleman with history of SVT status post ablation 6 years ago, previously stable on metoprolol. After discontinuation of metoprolol and loss to cardiology follow-up, patient developed palpitations and lightheadedness failure of multiple antiarrhythmic therapies including diltiazem, digoxin, dronedarone (Multaq), and cardioversion x2 prior to arriva . Troponin peaked presumed to be secondary to type 2 LA. Patient was monitored briefly on CIWA and did not score hence it was discontinued. Nicotine patches were ordered for an NRT. Hospital course complicated by recalcitrant SVT with hypotension, self limited vasovagal pause on telemetry on day1 , presumed due to bowel movement, followed by sinus tachycardia, and failure of multiple antiarrhythmic therapies including diltiazem, digoxin, dronedarone (Multaq), and cardioversion x2 prior to arrival. Patient is being discharged on flecainide 150 mg p.o. b.i.d., metoprolol 100 mg p.o. b.i.d., no further noted blocking agents, close outpatient Cardiology follow-up. Patient needs a Holter monitor, outpatient stress test, electrophysiological testing, follow up of plasma metanephrines. Patient has been advised to refrain from drinking alcohol, smoking cessation, illicit substances and no further [id number] medications either without reviewing with his PCP. Patient and his are in agreement with the above plan. Troponin peaked, felt to be demand-related. Echocardiogram demonstrated no ventricular or valvular abnormalities. Patient's blood pressure was also quite difficult to control which prompted us to check for metanephrines which are pending at the time of this discharge. Patient has been advised to follow up with PCP and get the results to follow with the PCP it is a send out and will take some time for the results to come back. At the time of discharge, his blood pressure meds include losartan hydrochlorothiazide, metoprolol DM type 2-resume home dose insulin Current smoker-Smoking cessation advised [id number] the patient to refrain from alcohol as this can also trigger AFib with RVR, electrolyte abnormalities. At discharge, patient is hemodynamically stable and in sinus rhythm. Time spent discussing smoking cessation with patient: more than 10 minutes Status at Discharge Functional status at discharge: independent ambulation Overall status at discharge: patient is back to baseline Time Attestation Discharge Coordination Time (in mins): 106 Quality: Safe Use of Opioids Does Pt have an Active Cancer Diagnosis on the Problem List?: No Quality: Stroke Does the patient have a stroke diagnosis?: No Physical Exam Vital Signs: Vital Signs: Last Vital Signs Temp 97.6 F 03/27/25 10:50 Pulse 97 03/27/25 10:50 Resp 16 03/27/25 10:50 BP 142/91 H 03/27/25 10:50 Pulse Ox 96 03/27/25 10:50 O2 Del Method Room Air 03/27/25 10:50 O2 Flow Rate 1 03/23/25 12:56 Oxygen Flow Rate 4 03/23/25 10:17 BMI result Body Mass Index 32.7 DS: Data Data Completed and Pending Labs on day of discharge: Laboratory Results - last 24 hr 03/26/25 03/26/25 03/26/25 10:52 16:10 20:24 WBC RBC Hgb Hct MCV MCH MCHC RDW Plt Count MPV Immature Gran % (Auto) Neut % (Auto) Lymph % (Auto) [place] % (Auto) Eos % (Auto) Baso % (Auto) Lymph # (Auto) [place] # (Auto) Eos # (Auto) Baso # (Auto) Abs Immat Gran (auto) Absolute Neuts (auto) Absolute Nucleated RBC Nucleated RBC % (auto) Sodium Potassium Chloride Carbon Dioxide Anion Gap BUN Creatinine Estim Creat Clear Calc Estimated GFR POC Glucose 170 H 213 H 294 H Random Glucose Calcium Magnesium Total Bilirubin AST ALT Alkaline Phosphatase Total Protein Albumin 03/27/25 03/27/25 06:27 07:13 WBC 7.4 RBC 5.34 Hgb 16.4 Hct 46.6 MCV 87.3 MCH 30.7 MCHC 35.2 RDW 12.2 Plt Count 209 MPV 11.8 Immature Gran % (Auto) 0.3 Neut % (Auto) 54.1 Lymph % (Auto) 29.5 [place] % (Auto) 6.0 Eos % (Auto) 9.7 H Baso % (Auto) 0.4 Lymph # (Auto) 2.2 [place] # (Auto) 0.4 Eos # (Auto) 0.7 H Baso # (Auto) 0.0 Abs Immat Gran (auto) 0.02 Absolute Neuts (auto) 4.0 Absolute Nucleated RBC 0.000 Nucleated RBC % (auto) 0.0 Sodium 140 Potassium 3.9 Chloride 109 H Carbon Dioxide 25 Anion Gap 10 L BUN 18 H Creatinine 0.78 Estim Creat Clear Calc 145.6 Estimated GFR > 60 POC Glucose 144 H Random Glucose 142 H Calcium 8.5 Magnesium 1.9 Total Bilirubin 0.6 AST 23 ALT 58 H Alkaline Phosphatase 73 Total Protein 6.7 Albumin 3.8 Discharge Plan Discharge Anticipated Discharge Date/Time: 03/27/25 10:40 Patient Disposition: Home, Self-Care Discharge Diagnosis: recurrent narrow complex tachycardia consistent with SVT Referrals: Physician,Unknown J [Physician, Medical] - 1 Week Discharge Medications: New nicotine (polacrilex) 2 mg Gum 2 mg buccal Q2H PRN (Reason: Nicotine Cravings) 10 Days Qty: 40 0RF nicotine 21 mg/24 hr Patch 24 Hour 21 mg transdermal DAILY 14 Days Qty: 14 0RF metoprolol tartrate 50 mg Tablet 100 mg PO BID 30 Days Qty: 120 3RF Protocol: Hold for SBP/HR < HOLD for SBP < : 90 HOLD for HR < : 60 flecainide 150 mg tablet 150 mg PO Q12H 30 Days Qty: 60 3RF losartan-hydrochlorothiazide [Hyzaar] 50-12.5 mg tablet 1 tab PO DAILY 30 Days Qty: 30 3RF Continued atorvastatin 20 mg tablet 20 mg PO DAILY metformin 1,000 mg tablet 1,000 mg PO BID insulin glargine [Lantus Solostar U-100 Insulin] 100 unit/mL (3 mL) insulin pen 45 unit subcut DAILY acetaminophen 650 mg Tablet Extended Release 1,300 mg PO Q8H PRN (Reason: Headache/Pain) Discharge Orders: Discharge Order (Routine); Ordered 03/27/25 Ordered By: Karine Wise Diet: Low salt diet Activity on Discharge: As tolerated Stand Alone Forms: Patient Portal Discharge page Print Language: Estonian Care Plan Goals: We will need stress test, Holter monitor, electrophysiology Very close outpatient Cardiology follow-up Very close PCP follow-up Hypotension control Diabetes control Refrain from alcohol and smoking cessation Health Concerns: See above Plan of Treatment: See above Assessment: See above Patient Instructions: Metoprolol (By mouth), Nicotine (Absorbed through the skin), Flecainide (By mouth)
--- NOTE | 2025-03-27 11:03 | PM.PNCARD ---
Subjective Subjective Date of Service: 03/27/25 Principal diagnosis: SVT. Interval history: Patient's heart rate has improved. Continues to have this sinus rhythm with brief tachycardia. P-waves are most suggestive of sinus beats. Very unusual. Plasma metanephrines as still pending. He has not had any prolonged fast heart rates. Tolerating flecainide. Review of Systems Review of Systems Yes all other systems are reviewed and are negative Physical Exam Vital Signs: Last Vital Signs Temp 97.6 F 03/27/25 10:50 Pulse 97 03/27/25 10:50 Resp 16 03/27/25 10:50 BP 142/91 H 03/27/25 10:50 Pulse Ox 96 03/27/25 10:50 O2 Del Method Room Air 03/27/25 10:50 O2 Flow Rate 1 03/23/25 12:56 Oxygen Flow Rate 4 03/23/25 10:17 BMI result Body Mass Index 32.7 Const General: cooperative, comfortable, no acute distress, alert, awake and anxious Nutritional Appearance: obese Orientation/consciousness: patient oriented x3 Limitations: no limitations HEENT Head: Yes normocephalic and Yes atraumatic Neck Neck: Yes trachea midline, Yes supple and Yes no JVD Resp Effort & Inspection: normal respiratory effort Auscultation: clear to auscultation bilaterally Cardio Jugular venous distension: no JVD Rate: tachycardic Rhythm: abnormal rhythm other (Intermittent tachycardia) Heart sounds: S1 normal heart sound present, S2 normal heart sound present, no click, no gallops and no murmurs GI Auscultation: normal bowel sounds Skin General skin exam: no rashes or lesions noted Neuro General: patient oriented x3 and no focal motor deficits Extrem General: Yes no clubbing, cyanosis or edema Objective Labs and Meds 03/27/25 06:27 03/27/25 06:27 Lab results: Laboratory Results - last 24 hr 03/26/25 03/26/25 03/27/25 16:10 20:24 06:27 WBC 7.4 RBC 5.34 Hgb 16.4 Hct 46.6 MCV 87.3 MCH 30.7 MCHC 35.2 RDW 12.2 Plt Count 209 MPV 11.8 Immature Gran % (Auto) 0.3 Neut % (Auto) 54.1 Lymph % (Auto) 29.5 [place] % (Auto) 6.0 Eos % (Auto) 9.7 H Baso % (Auto) 0.4 Lymph # (Auto) 2.2 [place] # (Auto) 0.4 Eos # (Auto) 0.7 H Baso # (Auto) 0.0 Abs Immat Gran (auto) 0.02 Absolute Neuts (auto) 4.0 Absolute Nucleated RBC 0.000 Nucleated RBC % (auto) 0.0 Sodium 140 Potassium 3.9 Chloride 109 H Carbon Dioxide 25 Anion Gap 10 L BUN 18 H Creatinine 0.78 Estim Creat Clear Calc 145.6 Estimated GFR > 60 POC Glucose 213 H 294 H Random Glucose 142 H Calcium 8.5 Magnesium 1.9 Total Bilirubin 0.6 AST 23 ALT 58 H Alkaline Phosphatase 73 Total Protein 6.7 Albumin 3.8 03/27/25 07:13 WBC RBC Hgb Hct MCV MCH MCHC RDW Plt Count MPV Immature Gran % (Auto) Neut % (Auto) Lymph % (Auto) [place] % (Auto) Eos % (Auto) Baso % (Auto) Lymph # (Auto) [place] # (Auto) Eos # (Auto) Baso # (Auto) Abs Immat Gran (auto) Absolute Neuts (auto) Absolute Nucleated RBC Nucleated RBC % (auto) Sodium Potassium Chloride Carbon Dioxide Anion Gap BUN Creatinine Estim Creat Clear Calc Estimated GFR POC Glucose 144 H Random Glucose Calcium Magnesium Total Bilirubin AST ALT Alkaline Phosphatase Total Protein Albumin Progress Note: A&P Assessment and plan (1) SVT (supraventricular tachycardia): Status: Acute Assessment and Plan: Poorly tolerated SVT, recalcitrant difficult to control. Currently on metoprolol at higher dose with improved heart rate. Will continue metoprolol 100 mg b.i.d. as outpatient. Also continue flecainide 150 mg b.i.d.. Will set up for outpatient testing including stress test as he is on flecainide with multiple risk factors as well as Holter monitor. Will also need to be seen by electrophysiology. Patient needs an EKGs today on flecainide. Will follow up as outpatient. Time Spent With Patient Time: Total time managing care of this patient today ____ minutes. Progress Note: Quality Stroke Does the patient have a stroke diagnosis?: No Procedures Date of Service Date of Service: 03/27/25
[2025-03-27 11:18] LABS: Glucose, Whole Blood 161 mg/dL (60-115)
--- NOTE | 2025-03-27 12:54 | MHC.CM.PN ---
Patient discharged to home selfcare. Private transport was arranged for the discharge.
--- NOTE | 2025-03-27 14:55 | ECG_ITS ---
Test Reason : sinus tachacardia Blood Pressure : */* mmHG Vent. Rate : 102 BPM Atrial Rate : 102 BPM P-R Int : 198 ms QRS Dur : 98 ms QT Int : 334 ms P-R-T Axes : 60 69 44 degrees QTcB Int : 435 ms Sinus tachycardia Otherwise normal ECG When compared with ECG of 26-Mar-2025 17:40, QT has lengthened Referred By: Karine Wise Electronically Signed By: NIDIA YOU
== END 2025-03-27 12:30 | disposition home or self-care (01) | DRG 201 ==
LOC: HO.ED 12:56 → HO.EDOVER 13:44 → HO.IMC 16:01
PROVIDERS: Internal Medicine; Admitting Provider Hospitalist; Emergency Provider Emergency Medicine; PCP Family Medicine; Visit Provider Student in an Organized Health Care Education/Training Program
DX: I47.19 Other supraventricular tachycardia (principal); I95.9 Hypotension, unspecified; E11.9 Type 2 diabetes mellitus without complications; F17.210 Nicotine dependence, cigarettes, uncomplicated; F10.90 Alcohol use, unspecified, uncomplicated; I10 Essential (primary) hypertension; Z71.6 Tobacco abuse counseling; Z79.4 Long term (current) use of insulin; Z79.84 Long term (current) use of oral hypoglycemic drugs; Z79.899 Other long term (current) drug therapy
CPT/HCPCS: 36415; 71045; 80053; 80061; 80307; 81003; 82248; 82947; 83036; 83735; 83835; 84443; 84484; 85025; 93005; 93306; 99285; J1160; J1163; J7120; Q9957

== ENCOUNTER → 2025-03-23 09:59 | Outpatient (BNV) | payer OTHER, SELFPAY | PROVIDERS: Emergency Provider Emergency Medicine; Visit Provider Internal Medicine Cardiovascular Disease | DX: I47.10 Supraventricular tachycardia, unspecified (principal) | CPT/HCPCS: 93010; 93306 ==

== ENCOUNTER → 2025-03-23 10:42 | Outpatient (BNV) | payer OTHER, SELFPAY | PROVIDERS: Emergency Provider Emergency Medicine; Visit Provider Internal Medicine Cardiovascular Disease | DX: I47.10 Supraventricular tachycardia, unspecified (principal) | CPT/HCPCS: 99223; 99233 ==

== ENCOUNTER → 2025-03-23 12:54 | Outpatient (BNV) | payer OTHER, SELFPAY | PROVIDERS: Admitting Provider Hospitalist; Emergency Provider Emergency Medicine; Visit Provider Radiology Diagnostic Radiology | DX: R00.2 Palpitations (principal) | CPT/HCPCS: 71045 ==

== ENCOUNTER 2025-03-23 13:43 | Outpatient (BNV) | payer OTHER, SELFPAY | END 2025-03-25 04:54 | PROVIDERS: Admitting Provider Hospitalist; Emergency Provider Emergency Medicine; Visit Provider Internal Medicine Cardiovascular Disease | DX: R00.0 Tachycardia, unspecified (principal) | CPT/HCPCS: 93010 ==

== ENCOUNTER 2025-03-23 13:43 | Outpatient (BNV) | payer OTHER, SELFPAY | END 2025-03-27 14:55 | PROVIDERS: Admitting Provider Hospitalist; Emergency Provider Emergency Medicine; PCP Family Medicine; Visit Provider Internal Medicine | DX: R00.0 Tachycardia, unspecified (principal) | CPT/HCPCS: 93010 ==

== ENCOUNTER 2025-03-23 13:43 | Outpatient (BNV) | payer OTHER, SELFPAY | END 2025-03-24 16:23 | PROVIDERS: Admitting Provider Hospitalist; Emergency Provider Emergency Medicine; Visit Provider Internal Medicine Cardiovascular Disease | DX: I47.19 Other supraventricular tachycardia (principal) | CPT/HCPCS: 93010 ==

== ENCOUNTER 2025-03-23 13:43 | Outpatient (BNV) | payer OTHER, SELFPAY | END 2025-03-26 14:55 | PROVIDERS: Admitting Provider Hospitalist; Emergency Provider Emergency Medicine; PCP Family Medicine; Visit Provider Internal Medicine Cardiovascular Disease | DX: R00.0 Tachycardia, unspecified (principal) | CPT/HCPCS: 93010 ==

== ENCOUNTER → 2025-03-23 13:43 | Outpatient (BNV) | payer OTHER, SELFPAY | PROVIDERS: Admitting Provider Hospitalist; Emergency Provider Emergency Medicine; Visit Provider Student in an Organized Health Care Education/Training Program | DX: R00.0 Tachycardia, unspecified (principal) | CPT/HCPCS: 99232; 99233; 99499 ==